=== PATIENT | male | born 1975 ===

== ENCOUNTER 2020-06-11 12:23 | Emergency (ER) | payer OTHER, SELFPAY ==
[2020-06-11 13:11] VITALS: BP 125/85; PULSE 90; RESP 16; TEMP 36.1; O2SAT 98; BMI 29.0
--- NOTE | 2020-06-11 13:34 | ED_ITS ---
HPI - General Adult General Chief complaint: General Medical <Maye Hurst NP - Last Filed: 06/11/20 16:17> Stated complaint: joint pain <Maye Hurst NP - Last Filed: 06/11/20 16:17> Time Seen by Provider: 06/11/20 13:29 <Maye Hurst NP - Last Filed: 06/11/20 16:17> Source: patient and hypnotherapist <Maye Husrt NP - Last Filed: 06/11/20 16:17> Mode of arrival: ambulatory <Maye Hurst NP - Last Filed: 06/11/20 16:17> Limitations: no limitations and language barrier <Maye Hurst NP - Last Filed: 06/11/20 16:17> History of Present Illness HPI narrative: 44-year-old male with a past medical history of rheumatoid arthritis here with complaints of joint pain and swelling for the last 3-4 days. Patient tells me he has difficulty with ambulation due to the pain. Using tramadol and warm compresses at home with no improvement. Patient was seen vocational case manager but due to the pandemic he has been unable to follow-up and therefore does not currently have a provider. He is not on any immunomodulators. Denies fevers, chills, chest pain, shortness of breath, cough, vomiting, diarrhea, abdominal pain, rash <Maye Hurst NP - Last Filed: 06/11/20 16:17> Related Data Home medications: Previous Rx's Medication Instructions Recorded oxycodone 5 mg PO Q6H PRN #10 tab 06/11/20 prednisone 40 mg PO DAILY #8 tab 06/11/20 <Maye Hurst NP - Last Filed: 06/11/20 16:17> Allergies/adverse reactions: Allergies Allergy/AdvReac Type Severity Reaction Status Date / Time aspirin [ASPIRIN] Allergy Unknown UNKNOWN Verified 06/11/20 13:16 ciprofloxacin [CIPROFLOXACIN] Allergy Unknown UNKNOWN Verified 06/11/20 13:16 <Maye Hurst NP - Last Filed: 06/11/20 16:17> Review of Systems Review of Systems: Yes all other systems are reviewed and are negative <Maye Hurst NP - Last Filed: 06/11/20 16:17> Constitutional: Constitutional: Reports no additional constitutional complaints, Denies body ache(s), Denies chills, Denies fever(s), Denies headache(s) and Denies weakness <Maye Hurst DATA WAREHOUSING MANAGER - Last Filed: 06/11/20 16:17> Eyes: Eyes: Reports no additional eye complaints and Denies change in vision <Maye Hurst DATA WAREHOUSING MANAGER - Last Filed: 06/11/20 16:17> ENT: Reports system reviewed and no additional complaints, except as docum ented, Denies dizziness, Denies headache(s), Denies nasal congestion, Denies nasal discharge and Denies neck pain <Maye Hurst DATA WAREHOUSING MANAGER - Last Filed: 06/11/20 16:17> Cardiovascular: Cardiovascular: Reports no additional cardiovascular complaints, Denies chest pain, Denies leg edema and Denies dyspnea <Maye Hurst DATA WAREHOUSING MANAGER - Last Filed: 06/11/20 16:17> Respiratory: Respiratory: Reports no additional respiratory complaints, Denies cough and Denies dyspnea <Maye Hurst DATA WAREHOUSING MANAGER - Last Filed: 06/11/20 16:17> Gastrointestinal: Gastrointestinal: Reports no additional gastrointestinal complaints, Denies abdominal pain, Denies diarrhea, Denies nausea and Denies vomiting <Maye Hurst DATA WAREHOUSING MANAGER - Last Filed: 06/11/20 16:17> Genitourinary: Genitourinary: Denies urinary incontinence <Maye Hurst DATA WAREHOUSING MANAGER - Last Filed: 06/11/20 16:17> Musculoskeletal: Musculoskeletal: Reports no additional musculoskeletal complaints, Denies back pain, Reports arthralgias, Reports joint swelling, Denies neck pain, Denies numbness and Denies tingling <Maye Hurst DATA WAREHOUSING MANAGER - Last Filed: 06/11/20 16:17> Integumentary/Breasts: Skin/Breast: Reports system reviewed and no additional complaints, except as docu and Denies rash <Maye Hurst DATA WAREHOUSING MANAGER - Last Filed: 06/11/20 16:17> Neurologic: Reports system reviewed and no additional complaints, except as documented, Denies Abnormal speech present, Denies dizziness, Denies headache(s), Denies numbness, Denies tingling and Denies weakness <Maye Hurst NP - Last Filed: 06/11/20 16:17> [facility] Past Medical History Attestation statement: The following information was validated with the patient. <Maye Hurst NP - Last Filed: 06/11/20 16:17> Source: old records reviewed and nursing notes reviewed <Maye Hurst NP - Last Filed: 06/11/20 16:17> Medical History: Medical History Hypertension Rheumatoid arthritis <Maye Hurst NP - Last Filed: 06/11/20 16:17> Surgical History: Surgical History Hx of cholecystectomy <Maye Hurst NP - Last Filed: 06/11/20 16:17> Social History Social History: Social History Alcohol intake: never Smoking Status: Current every day smoker Use of substances other than those prescribed or required for medical reasons: No Advance Directives: No Advance Directives Information Provided: Yes <Maye Hurst NP - Last Filed: 06/11/20 16:17> Physical Exam Vital Signs: Vital Signs: Last Vital Signs Temp 97.0 F 06/11/20 13:11 Pulse 90 06/11/20 13:11 Resp 16 06/11/20 13:11 BP 125/85 06/11/20 13:11 Pulse Ox 98 06/11/20 13:11 Body Mass Index 29.0 <Maye Hurst NP - Last Filed: 06/11/20 16:17> Vital Signs: Last Vital Signs Temp 97.0 F 06/11/20 13:11 Pulse 90 06/11/20 13:11 Resp 16 06/11/20 13:11 BP 125/85 06/11/20 13:11 Pulse Ox 98 06/11/20 13:11 Body Mass Index 29.0 <Hubert Nugent MD - Last Filed: 06/26/20 07:46> Const: General: cooperative, healthy appearing, comfortable and no acute distress <Maye Hurst NP - Last Filed: 06/11/20 16:17> Orientation/consciousness: patient oriented x3 <Maye Hurst NP - Last Filed: 06/11/20 16:17> Limitations: no limitations <Maye Hurst NP - Last Filed: 06/11/20 16:17> HENMT: Head: Yes normal to inspection <Maye Hurst NP - Last Filed: 06/11/20 16:17> Ears: hearing grossly normal bilaterally <Maye Hurst NP - Last Filed: 06/11/20 16:17> General nose exam: Normal external nose present <Maye Hurst NP - Last Filed: 06/11/20 16:17> Face and sinus: Yes normal facial exam <Maye Hurst NP - Last Filed: 06/11/20 16:17> Mouth: Normal oral and palatal mucosa present <Maye Hurst NP - Last Filed: 06/11/20 16:17> Throat: Yes posterior oropharynx normal <Maye Hurst NP - Last Filed: 06/11/20 16:17> Eyes: General: appearance normal, both eyes and all related structures <Maye Hurst NP - Last Filed: 06/11/20 16:17> Pupils: Equal, round and reactive pupils present <Maye Hurst NP - Last Filed: 06/11/20 16:17> Neck: Neck: Yes normal visual inspection <Maye Hurst NP - Last Filed: 06/11/20 16:17> Chest: Chest palpation & inspection: normal inspection of the chest <Maye Hurst NP - Last Filed: 06/11/20 16:17> Resp: Effort & Inspection: normal respiratory effort <Maye Hurst NP - Last Filed: 06/11/20 16:17> Auscultation: clear to auscultation bilaterally <Maye Hurst NP - Last Filed: 06/11/20 16:17> Cardio: Rate: regular rate <Maye Hurst NP - Last Filed: 06/11/20 16:17> Rhythm: regular rhythm <Maye Hurst NP - Last Filed: 06/11/20 16:17> Peripheral pulses: Peripheral pulses 2+ throughout <Maye Hurst DATA WAREHOUSING MANAGER - Last Filed: 06/11/20 16:17> GI: Inspection: Yes normal to inspection <Maye Hurst DATA WAREHOUSING MANAGER - Last Filed: 06/11/20 16:17> Palpation (GI): Soft to palpation and nontender <Maye Hurst NP - Last Filed: 06/11/20 16:17> Auscultation: normal bowel sounds <Maye Hurst NP - Last Filed: 06/11/20 16:17> Back/Spine/Pelvis: Thoracic/Lumbar Spine: thoracic and lumbar spine normal to inspection <Maye Hurst NP - Last Filed: 06/11/20 16:17> Skin: General skin exam: no rashes or lesions noted <Maye Hurst NP - Last Filed: 06/11/20 16:17> Neuro: General: patient oriented x3, no focal motor deficits and normal sensation to monofilament <Maye Hurst DATA WAREHOUSING MANAGER - Last Filed: 06/11/20 16:17> Cranial nerves: Yes Equal, round and reactive pupils present <Maye Hurst NP - Last Filed: 06/11/20 16:17> Cognition (Neuro): normal cognition <Maye Hurst DATA WAREHOUSING MANAGER - Last Filed: 06/11/20 16:17> Speech: No Abnormal speech present <Maye Hurst NP - Last Filed: 06/11/20 16:17> Gait exam (Neuro): Normal gait present <Maye Hurst NP - Last Filed: 06/11/20 16:17> Motor exam (neuro): 5/5 motor strength present throughout <Maye Hurst NP - Last Filed: 06/11/20 16:17> Extrem: Other: Swelling and tenderness to bilateral ankles, bilateral knees, bilateral wrists, bilateral shoulders. There is no appreciable erythema, warmth. Range of motion is limited in all joints due to pain <Maye Hurst NP - Last Filed: 06/11/20 16:17> General: Yes normal to inspection <Maye Hurst NP - Last Filed: 06/11/20 16:17> Course Course Course Narrative: [age] year old male with a past medical history of rheumatoid arthritis here with RA flare. Does not currently have her vocational case manager and is not on any immunomodulators. Using home tramadol and warm compresses with continued pain. Patient will likely benefit from a short burst of prednisone, will manage pain and refer to Rheumatology here. Reviewed worrisome signs and symptoms and when to return to the emergency department. Comfortable discharge home. <Maye Hurst NP - Last Filed: 06/11/20 16:17> I have reviewed the chart <Hubert Nugent MD - Last Filed: 06/26/20 07:46> Medical Decision Making Medical Records Medical records reviewed: Yes I reviewed the patient's medical records. <Maye Hurst NP - Last Filed: 06/11/20 16:17> Lab Data Lab results reviewed: Yes I reviewed the patient's lab results. <Maye Hurst NP - Last Filed: 06/11/20 16:17> Discharge Plan Discharge Clinical Impression: Rheumatoid arthritis flare <Maye Hurst NP - Last Filed: 06/11/20 16:17> Patient Disposition: Home, Self-Care <Maye Hurst NP - Last Filed: 06/11/20 16:17> Instructions: Rheumatoid Arthritis (ED) <Maye Hurst NP - Last Filed: 06/11/20 16:17> Additional Instructions: Warm compresses, do not mix tramadol with oxycodone <Maye Hurst NP - Last Filed: 06/11/20 16:17> Prescriptions: New oxycodone 5 mg tablet 5 mg PO Q6H PRN (Reason: pain) Qty: 10 RF: 0 prednisone 20 mg tablet 40 mg PO DAILY Qty: 8 RF: 0 <Maye Hurst NP - Last Filed: 06/11/20 16:17> Referrals: Levy Laboy MD [Physician] - 2 days <Maye Hurst NP - Last Filed: 06/11/20 16:17> Interventions: ED Discharge Assessment Last Done: 06/11/20 14:05 <Maye Hurst NP - Last Filed: 06/11/20 16:17> Discharge Date/Time: 06/11/20 14:06 <Maye Hurst NP - Last Filed: 06/11/20 16:17> Print Language: Syriac <Maye Hurst NP - Last Filed: 06/11/20 16:17>
[2020-06-11] MEDS: oxyCODONE HCl Immed Release 5 MG TABLET PO (13:51)
[2020-06-11] MEDS: predniSONE 20 MG TABLET 40 MG PO (13:52)
== END 2020-06-11 14:06 | disposition home or self-care (01) ==
PROVIDERS: Emergency Provider Emergency Medicine
DX: M06.862 Other specified rheumatoid arthritis, left knee (principal); M06.861 Other specified rheumatoid arthritis, right knee; F17.200 Nicotine dependence, unspecified, uncomplicated; Z71.6 Tobacco abuse counseling; Z79.899 Other long term (current) drug therapy
CPT/HCPCS: 99283; 99284

== ENCOUNTER 2020-07-12 08:56 | Emergency (ER) | payer OTHER, SELFPAY ==
--- NOTE | ~2020-07-12 | CT_ITS ---
EXAMINATION: CT ABDOMEN AND PELVIS WITHOUT CONTRAST CLINICAL INFORMATION: Change in urine habits with dark color urine. COMPARISON: CT abdomen and pelvis without contrast 07/15/2018 TECHNIQUE: Multidetector volumetric imaging was performed from the superior aspect of the liver through the pubic symphysis. Sagittal and coronal reformatted images were obtained on the technologist's workstation. This CT examination was performed using dose optimization techniques as appropriate, variously including the following: *Automated exposure control *Adjustment of mA and/or kV according to patient size (this includes techniques or standardized protocols for targeted exams where dose is matched to indication/reason for exam; i.e. extremities or head) *Use of iterative reconstruction technique DLP: 467 mGy-cm FINDINGS: LUNG BASES: The lung bases are clear. The heart size is normal. LIVER, GALLBLADDER, AND BILIARY TREE: The liver is normal in size, shape, and attenuation. No focal hepatic lesion or biliary ductal dilatation is present. The gallbladder has been surgically removed. PANCREAS: Unremarkable. SPLEEN: Unremarkable. ADRENAL GLANDS: Unremarkable. KIDNEYS AND URETERS: The kidneys are normal in size, shape, and attenuation. No hydronephrosis, hydroureter, or calculi seen. No perinephric stranding. BLADDER: The bladder is undistended with minimal anterior and posterior bladder wall thickening measuring 0.9 cm. GASTROINTESTINAL TRACT: There is scattered stool and gas seen throughout the colon without any significant distention. The small bowel loops are normal caliber. The stomach is nondistended and appears unremarkable. The appendix is normal caliber. ABDOMINAL WALL: There is a small supraumbilical midline hernia with intraperitoneal fat. The neck is 1.0 cm in width and craniocaudad length. A small umbilical hernia containing fat is also noted. LYMPH NODES: Normal. VASCULAR: Unremarkable. PELVIC VISCERA: There is no free air or free fluid seen. There is a solitary surgical staple in the pelvis. The prostate gland is normal size. OSSEOUS STRUCTURES: No lytic or sclerotic process seen. There is mild posterior spondylosis L5-S1 disc level. CT/CT abdomen pelvis wo con IMPRESSION: No acute intra-abdominal process seen. There is no the urolith or hydroureteronephrosis. Undistended bladder with mild bladder wall thickening. No radiopaque calculi seen in bladder. Mild supraumbilical midline abdominal hernia containing intraperitoneal fat.
[2020-07-12 09:41] VITALS: BP 115/66; PULSE 90; RESP 14; TEMP 37.6; O2SAT 98; BMI 23.2
[2020-07-12] MEDS: Ibuprofen 600 MG TABLET PO (10:34)
[2020-07-12] MEDS: oxyCODONE HCl Immed Release 5 MG TABLET PO (10:35)
[2020-07-12] MEDS: predniSONE 20 MG TABLET 60 MG PO (10:35)
[2020-07-12 10:48] LABS: Glucose Urine UA NEG (NEG); Leukocyte Esterase Urine NEG (NEG); Nitrite Urine NEG (NEG); PH 7.5 (5.0-8.0); Specific Gravity - Urine 1.025 (1.005-1.025); Urine Blood NEG (NEG); Urine Ketones 15 MG/DL (NEG); Urine Protein 1+ MG/DL (NEG-TRACE)
[2020-07-12 10:50] LABS: Appearance Urine CLEAR; Color Urine AMBER
[2020-07-12 11:01] LABS: Amorphous Sediment Urine TRACE /LPF; Mucus Urine 3+ /LPF; RBC Urine 0-2 /HPF (0); Sperm Urine NOTED; WBC Urine 0 /HPF (0-4)
--- NOTE | 2020-07-12 11:23 | ED.MALEGU ---
HPI - Male Genitourinary General Chief complaint: Fever Stated complaint: BODY ACHES Time Seen by Provider: 07/12/20 09:07 Source: patient Mode of arrival: ambulatory Limitations: no limitations History of Present Illness HPI Narrative: 44-year-old male with a past medical history of hypertension, hyperlipidemia and rheumatoid arthritis presenting to the ED with complaints of darker colored urine over the past 3 days then he noticed 2 days ago he started having body aches and chills. He reports he has not been sexually active in years and he does not believe he has an STD. He reports he does not actually take his temperature although had chills with sweats and believes he had a fever. He denies any penile discharge or hematuria. He also reports a separate complaint of a flare-up of his rheumatoid arthritis in his bilateral jaw/bilateral hands/bilateral knees and bilateral ankles. He reports he takes tramadol for his rheumatoid arthritis although not providing any symptomatic relief. He reports he has a follow-up with his rheumatoid arthritis coming up. Denies any measured fevers, dizziness, headache, neck pain/stiffness, chest pain, shortness of breath, palpitations, dyspnea on exertion, orthopnea, cough, sore throat, nausea/vomiting/diarrhea/constipation, abdominal pain, back pain or any other symptoms complaints or concerns at this time. Patient denies any new medications, recent trauma, recent travel or sick contacts that he is aware of. MD Complaint: other (Dark colored urine) Onset (ago): day(s) (3 days) Duration: constant and progressively worsening Location: penis Severity: moderate Relieving factors: none Exacerbating factors: urination Related Data Sexually active: No Previous Rx's Medication Instructions Recorded oxycodone 5 mg PO Q6H PRN #10 tab 06/11/20 prednisone 40 mg PO DAILY #8 tab 06/11/20 diazepam [Valium] 10 mg PO TID PRN #10 tab 07/12/20 ibuprofen 800 mg PO Q8H PRN #14 tab 07/12/20 oxycodone 5 mg PO BID PRN #10 tab 07/12/20 prednisone 40 mg PO DAILY 5 Days #10 tab 07/12/20 Allergies Allergy/AdvReac Type Severity Reaction Status Date / Time aspirin [ASPIRIN] Allergy Unknown UNKNOWN Verified 06/11/20 13:16 ciprofloxacin [CIPROFLOXACIN] Allergy Unknown UNKNOWN Verified 06/11/20 13:16 Review of Systems Review of Systems: Constitutional : Positive chills/malaise/fatigue, No Weight loss, No measured Fever, No Night Sweats ENT/Mouth: No ear pain, No sore throat, No Difficulty swallowing Cardiovascular : No Chest Pain, No SOB, No Dyspnea on Exertion, No Orthopnea, NoEdema, No Palpitations Respiratory : No Cough, No Sputum, No Wheezing, No Dyspnea Gastrointestinal : No Nausea, No Vomiting, No abdominal pain, No Diarrhea, No blood streaked emesis, No coffee-ground emesis, No gross hematemesis, No blood streak stool, No gross hematochezia, No Melena Genitourinary : Positive change in urine color, No irregular bleeding, No Dysuria, No Urinary Frequency, No Hematuria, No Urinary Incontinence, No Urgency, No Flank Pain Musculoskeletal : Positive joint pain/swelling/myalgias Skin : No Skin Lesions, No rash Neuro : No Weakness, No Numbness, No Paresthesias, No Loss of Consciousness, NoDizziness, No Headache Psych : No Social Issues, Heme/Lymph: No Bruising, No Bleeding,No Lymphadenopathy Endocrine : No Polyuria, No Polydipsia, No Temperature Intolerance Yes all other systems are reviewed and are negative [facility] Past Medical History Attestation statement: The following information was validated with the patient. Medical History Hypertension Rheumatoid arthritis Surgical History Hx of cholecystectomy Social History Social History Alcohol intake: never Smoking Status: Current every day smoker Smoked in Last 30 Days: No Use of substances other than those prescribed or required for medical reasons: No Advance Directives: No Advance Directives Information Provided: No Physical Exam Vital Signs: Vital Signs: Last Vital Signs Temp 98.2 F 07/12/20 14:00 Pulse 73 07/12/20 14:00 Resp 16 07/12/20 14:00 BP 104/60 07/12/20 14:00 Pulse Ox 99 07/12/20 14:00 Body Mass Index 23.2 vital signs have been reviewed as normal and appeared to be correct. Blood pressure normal. Heart rate normal. Respiration rate normal. Temperature normal. Oxygen saturation normal. Appearance: Alert. Oriented X3. No acute distress. Head: Normal external exam. Normocephalic. Eyes: PERRLA. EOMI. Conjunctiva and sclera normal. Eyelids normal. ENT: Pharynx normal. Uvula midline. Moist mucous membranes. Neck: Normal inspection. Neck supple. FROM. No adenopathy. No meningeal signs. CVS: Normal heart rate and rhythm. Heart sound normal. No murmurs noted. Pulses normal throughout. Respiratory: No respiratory distress. Painless inspiration. Breath sounds normal. No wheezes/rales/rhonchi noted. Chest nontender. No accessory muscle usage noted or decreased air movement noted. Abdomen: Soft and nontender. Nondistended. No guarding. No rigidity. Bowel sounds normal in all 4 quadrants. No distention noted. No organomegaly noted. No visible injury noted. No rebound tenderness. Negative Rovsing sign. Negative obturator's sign. Negative psoas sign. Negative Russell sign. Back: No CVA tenderness. Full range of motion noted. Skin: Skin warm and dry. Normal skin color. Normal skin turgor. No rashes/lesions/lacerations noted. Extremities: Patient with tenderness to palpation to bilateral hands at the MCPs with soft tissue swelling noted consistent with acute flare of rheumatoid arthritis. No signs of infection noted/erythema/streaking/fluctuance or induration. Patient mild tenderness to palpation to bilateral knees no laxity is noted patient has full range of motion. No joint effusion is noted. Patient with mild tenderness to palpation to bilateral ankles with mild soft tissue swelling no signs of infection. Full range of motion of bilateral ankles and no laxity is noted. Patient has a normal steady gait. Otherwise all other Extremities exhibit normal range of motion and nontender. Neuro: Oriented X 3. No motor deficit. No sensory deficit. Reflexes normal. Normal steady gait. Course Course Course Narrative: 15:20pm - labs returned and CT scan at this time due to they were delayed and patient's labs reviewed at this time and patient has an elevation in ALT at 67 and alkaline phosphate at 318 and total protein 8.1 otherwise all other labs are within normal limits. UA revealed +1 protein and [place] color urine with 15 ketones otherwise no evidence of UTI. Patient with diarrhea for COVID/RSV/flu. - due to the patient's elevated ALT and alkaline phosphate I added hepatitis A/hepatitis-B and hepatitis-C panel although will not return today. 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 Patient understands agrees with this plan. MDM - Male Genitourinary MDM Narrative Medical decision making narrative: 11am - 44-year-old male presenting to the ED with complaints of dark colored urine over the past 3 days with associated body aches and chills. Not sexually active. No thoughts of STD. Separate complaint of acute on chronic rheumatoid arthritis flare up over the past few days as well. Currently on tramadol not providing any symptomatic relief. Follow-up appointment this month to his rheumatoid arthritis. Plan: Labs, UA, gonorrhea/chlamydia urine, COVID/RSV/flu swab, CT scan of abd/pelvis without IV contrast. Provide 60 mg of prednisone, 600 mg of ibuprofen and 5 mg of oxycodone for the patient's rheumatoid arthritis flare-up. Then re-evaluate Medical Records Attestation: I reviewed the patient's medical records. Lab Data Attestation: I reviewed the patient's lab results. Result diagrams: 07/12/20 13:00 07/12/20 13:00 Labs: Lab Results 07/12/20 07/12/20 07/12/20 Range/Units 10:22 10:40 13:00 WBC 6.3 (4.8-10.8) X10*3/uL RBC 4.73 (4.60-5.80) X10*6/uL Hgb 14.3 (14.0-18.0) g/dl Hct 42.6 (42-52) % MCV 90.1 (80-98) fL MCH 30.2 (27.0-33.0) pg MCHC 33.6 (31.0-36.0) g/dl RDW 11.2 (11.0-16.0) % Plt Count 375 (160-400) X10*3/uL MPV 8.9 L (9.4-12.4) fL Immature Gran % (Auto) 0.3 (0.0-0.4) % Neut % (Auto) 85.2 H (45-73) % Lymph % (Auto) 10.9 L (20-40) % Barron % (Auto) 2.7 (2-11) % Eos % (Auto) 0.6 (0-4) % Baso % (Auto) 0.3 (0-2) % Lymph # (Auto) 0.7 L (1.2-4.9) X10*3/uL Barron # (Auto) 0.2 (0.1-1.2) X10*3/uL Eos # (Auto) 0.0 (0.0-0.4) X10*3/uL Baso # (Auto) 0.0 (0.0-0.2) X10*3/uL Abs Immat Gran (auto) 0.02 (0.00-0.03) X10*3/uL Absolute Neuts (auto) 5.3 (2.0-8.3) X10*3/uL Absolute Nucleated RBC 0.000 (0.0-0.012) X10*3/uL Nucleated RBC % (auto) 0.0 (0.0-0.2) /100WBC Smear Tech's Comments VERIFIED Hold Blue Top Sodium (135-145) mmol/L Potassium (3.3-5.1) mmol/L Chloride (96-108) mmol/L Carbon Dioxide (22-29) mmol/L Anion Gap (12-20) BUN (9-16) mg/dL Creatinine (0.5-1.4) mg/dL Estim Creat Clear Calc Estimated GFR Random Glucose (60-115) mg/dL Calcium (8.4-10.2) mg/dL Total Bilirubin (0.0-1.0) mg/dL AST (5-37) U/L ALT (0-40) U/L Alkaline Phosphatase (39-117) U/L Total Protein (6.5-8.0) g/dL Albumin (3.5-5.0) g/dL Urine Color [place] Urine Appearance CLEAR Urine pH 7.5 (5.0-8.0) Ur Specific [place] 1.025 (1.005-1.025) Urine Protein 1+ H (NEG-TRACE) MG/DL Urine Glucose (UA) NEG (NEG) MG/DL Urine Ketones 15 (NEG) MG/DL Urine Blood NEG (NEG) Urine Nitrite NEG (NEG) Ur Leukocyte Esterase NEG (NEG) Urine RBC 0-2 (0) /HPF Urine WBC 0 (0-4) /HPF Ur Squamous Epith Cells NONE /LPF Amorphous Sediment TRACE /LPF Urine Bacteria NONE /LPF Urine Mucus 3+ /LPF Urine Sperm NOTED Coronavirus (PCR) NEGATIVE (Negative) Influenza Type A (PCR) NEGATIVE (Negative) Influenza Type B (PCR) NEGATIVE (Negative) RSV RNA Qual (PCR) NEGATIVE (Negative) 07/12/20 07/12/20 Range/Units 13:00 13:00 WBC (4.8-10.8) X10*3/uL RBC (4.60-5.80) X10*6/uL Hgb (14.0-18.0) g/dl Hct (42-52) % MCV (80-98) fL MCH (27.0-33.0) pg MCHC (31.0-36.0) g/dl RDW (11.0-16.0) % Plt Count (160-400) X10*3/uL MPV (9.4-12.4) fL Immature Gran % (Auto) (0.0-0.4) % Neut % (Auto) (45-73) % Lymph % (Auto) (20-40) % Barron % (Auto) (2-11) % Eos % (Auto) (0-4) % Baso % (Auto) (0-2) % Lymph # (Auto) (1.2-4.9) X10*3/uL Barron # (Auto) (0.1-1.2) X10*3/uL Eos # (Auto) (0.0-0.4) X10*3/uL Baso # (Auto) (0.0-0.2) X10*3/uL Abs Immat Gran (auto) (0.00-0.03) X10*3/uL Absolute Neuts (auto) (2.0-8.3) X10*3/uL Absolute Nucleated RBC (0.0-0.012) X10*3/uL Nucleated RBC % (auto) (0.0-0.2) /100WBC Smear Tech's Comments Hold Blue Top SEE NOTE Sodium 139 (135-145) mmol/L Potassium 4.8 (3.3-5.1) mmol/L Chloride 102 (96-108) mmol/L Carbon Dioxide 28 (22-29) mmol/L Anion Gap 14 (12-20) BUN 8 L (9-16) mg/dL Creatinine 0.72 (0.5-1.4) mg/dL Estim Creat Clear Calc 118.1 Estimated GFR > 60 Random Glucose 107 (60-115) mg/dL Calcium 9.7 (8.4-10.2) mg/dL Total Bilirubin 0.6 (0.0-1.0) mg/dL AST 32 (5-37) U/L ALT 67 H (0-40) U/L Alkaline Phosphatase 318 H (39-117) U/L Total Protein 8.1 H (6.5-8.0) g/dL Albumin 3.9 (3.5-5.0) g/dL Urine Color Urine Appearance Urine pH (5.0-8.0) Ur Specific [place] (1.005-1.025) Urine Protein (NEG-TRACE) MG/DL Urine Glucose (UA) (NEG) MG/DL Urine Ketones (NEG) MG/DL Urine Blood (NEG) Urine Nitrite (NEG) Ur Leukocyte Esterase (NEG) Urine RBC (0) /HPF Urine WBC (0-4) /HPF Ur Squamous Epith Cells /LPF Amorphous Sediment /LPF Urine Bacteria /LPF Urine Mucus /LPF Urine Sperm Coronavirus (PCR) (Negative) Influenza Type A (PCR) (Negative) Influenza Type B (PCR) (Negative) RSV RNA Qual (PCR) (Negative) Imaging Data CT scan of abdomen and pelvis without contrast: Attestation: I personally reviewed and interpreted this imaging study as follows: Radiologist's impression: FINDINGS: LUNG BASES: The lung bases are clear. The heart size is normal. LIVER, GALLBLADDER, AND BILIARY TREE: The liver is normal in size, shape, and attenuation. No focal hepatic lesion or biliary ductal dilatation is present. The gallbladder has been surgically removed. PANCREAS: Unremarkable. SPLEEN: Unremarkable. ADRENAL GLANDS: Unremarkable. KIDNEYS AND URETERS: The kidneys are normal in size, shape, and attenuation. No hydronephrosis, hydroureter, or calculi seen. No perinephric stranding. BLADDER: The bladder is undistended with minimal anterior and posterior bladder wall thickening measuring 0.9 cm. GASTROINTESTINAL TRACT: There is scattered stool and gas seen throughout the colon without any significant distention. The small bowel loops are normal caliber. The stomach is nondistended and appears unremarkable. The appendix is normal caliber. ABDOMINAL WALL: There is a small supraumbilical midline hernia with intraperitoneal fat. The neck is 1.0 cm in width and craniocaudad length. A small umbilical hernia containing fat is also noted. LYMPH NODES: Normal. VASCULAR: Unremarkable. PELVIC VISCERA: There is no free air or free fluid seen. There is a solitary surgical staple in the pelvis. The prostate gland is normal size. OSSEOUS STRUCTURES: No lytic or sclerotic process seen. There is mild posterior spondylosis L5-S1 disc level. CT/CT abdomen pelvis wo con IMPRESSION: No acute intra-abdominal process seen. There is no the urolith or hydroureteronephrosis. Undistended bladder with mild bladder wall thickening. No radiopaque calculi seen in bladder. Mild supraumbilical midline abdominal hernia containing intraperitoneal fat. Discharge Plan Discharge Clinical Impression: Rheumatoid arthritis, Urine discoloration, Alkaline phosphatase elevation, Abdominal hernia Patient Disposition: Home, Self-Care Instructions: Rheumatoid Arthritis (ED), Abdominal Pain (ED) Additional Instructions: You have pending lab results and any are positive you will be contacted. Prescriptions: New ibuprofen 800 mg tablet 800 mg PO Q8H PRN (Reason: pain) Qty: 14 RF: 0 prednisone 20 mg tablet 40 mg PO DAILY 5 Days Qty: 10 RF: 0 diazepam [Valium] 10 mg tablet 10 mg PO TID PRN (Reason: muscle spasm) Qty: 10 RF: 0 oxycodone 5 mg tablet 5 mg PO BID PRN (Reason: pain) Qty: 10 RF: 0 No Action oxycodone 5 mg tablet 5 mg PO Q6H PRN (Reason: pain) Qty: 10 RF: 0 prednisone 20 mg tablet 40 mg PO DAILY Qty: 8 RF: 0 Referrals: Daniel Khan MD [Physician] - 2 days (Regarding your [place] colored urine) Physician,Caitlin [Primary Care Provider] - 2 days (You should follow-up with her PCP regarding her liver function and 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
[2020-07-12 11:43] LABS: Influenza A PCR NEGATIVE (Negative); Influenza B PCR NEGATIVE (Negative); Resp Syncy Virus RNA Qual PCR NEGATIVE (Negative); SARS COV2 PCR INHOUSE NEGATIVE (Negative)
[2020-07-12 13:08] LABS: Basophils Percent Auto 0.3 % (0-2); Eosinophils Percent Auto 0.6 % (0-4); Hematocrit 42.6 % (42-52); Hemoglobin 14.3 g/dl (14.0-18.0); Imm Gran Abs Auto 0.02 X10*3/uL (0.00-0.03); Imm Gran Pct Auto 0.3 % (0.0-0.4); Lymphocytes Absolute Auto 0.7 X10*3/uL (1.2-4.9); Lymphocytes Percent Auto 10.9 % (20-40); MANUAL DIFF FLAG SCAN; Mean Corpuscular HGB Conc 33.6 g/dl (31.0-36.0); Mean Corpuscular Hemoglobin 30.2 pg (27.0-33.0); Mean Corpuscular Volume 90.1 fL (80-98); Mean Platelet Volume 8.9 fL (9.4-12.4); Monocytes Absolute Auto 0.2 X10*3/uL (0.1-1.2); Monocytes Percent Auto 2.7 % (2-11); Neutrophils Absolute Auto 5.3 X10*3/uL (2.0-8.3); Neutrophils Percent Auto 85.2 % (45-73); Platelet Count 375 X10*3/uL (160-400); Red Blood Count 4.73 X10*6/uL (4.60-5.80); Red Cell Distribution Width 11.2 % (11.0-16.0); SCAN SMEAR FLAG 1; White Blood Count 6.3 X10*3/uL (4.8-10.8)
[2020-07-12 13:42] LABS: Alanine Aminotransferase 67 U/L (0-40); Albumin Level 3.9 g/dL (3.5-5.0); Alkaline Phosphatase 318 U/L (39-117); Anion Gap 14 (12-20); Aspartate Amino Transferase 32 U/L (5-37); Bilirubin Total 0.6 mg/dL (0.0-1.0); Blood Urea Nitrogen 8 mg/dL (9-16); Calcium 9.7 mg/dL (8.4-10.2); Carbon Dioxide 28 mmol/L (22-29); Chloride 102 mmol/L (96-108); Creatinine Clr Calc Pharmacy 118.1; Estimated Glomerular Filt Rate > 60; Glucose Random 107 mg/dL (60-115); Potassium 4.8 mmol/L (3.3-5.1); Sodium 139 mmol/L (135-145); Total Protein 8.1 g/dL (6.5-8.0)
[2020-07-12 13:47] LABS: SLIDE REVIEW VERIFIED
[2020-07-12 14:00] VITALS: BP 104/60; PULSE 73; RESP 16; TEMP 36.8; O2SAT 99
--- NOTE | 2020-07-12 14:50 | PC.NURSE ---
pt has been waiting patiently in [facility], [facility]. labs were delayed d/t high volume in ed. pt c/o subjective fevers and gen pain. awaits last results. no resp distreess. skin pwd. nad.
[2020-07-13 04:32] LABS: HBS Num1 > 1000.00 mIU/mL (0-7.99); Hepatitis B Core Antibody Nonreactive (Nonreactive); Hepatitis B Surface Antigen Negative (Negative); ~Hepatitis B Surface Antibody REACTIVE (Nonreactive)
[2020-07-13 04:42] LABS: Hepatitis A Antibody IgM 0.36 Index (0-0.79); ~HepC Num1 0.12 S/CO (0.00-0.79); ~Hepatitis A Antibody IgM Nonreactive (Nonreactive); ~Hepatitis C Antibody Nonreactive (Nonreactive)
== END 2020-07-12 16:30 | disposition home or self-care (01) ==
PROVIDERS: Physician Assistant Medical; Emergency Provider Emergency Medicine
DX: M06.9 Rheumatoid arthritis, unspecified (principal); M79.10 Myalgia, unspecified site; K46.9 Unspecified abdominal hernia without obstruction or gangrene; I10 Essential (primary) hypertension; E78.5 Hyperlipidemia, unspecified; F17.200 Nicotine dependence, unspecified, uncomplicated; Z20.822 Contact with and (suspected) exposure to COVID-19; Z71.6 Tobacco abuse counseling; Z79.899 Other long term (current) drug therapy
CPT/HCPCS: 0241U; 36415; 74176; 80053; 81001; 85025; 86704; 86706; 86709; 86803; 87340; 99284

== ENCOUNTER → 2020-09-28 09:19 | Outpatient (BNVA) | payer OTHER, SELFPAY | PROVIDERS: PCP Nurse Practitioner; Visit Provider Student in an Organized Health Care Education/Training Program | DX: M06.9 Rheumatoid arthritis, unspecified (principal) | CPT/HCPCS: 99212 ==

== ENCOUNTER 2020-10-01 09:53 | Outpatient (REF) | payer OTHER, SELFPAY ==
--- NOTE | ~2020-10-01 | XR_ITS ---
EXAMINATION: BILATERAL HAND X-RAY CLINICAL INFORMATION: Rheumatoid arthritis COMPARISON: Previous exam December 2015 TECHNIQUE: 3 views of each hand FINDINGS: Left: Bone alignment is normal. No fracture or dislocation is seen. There may be small erosive changes of the ulnar side second, third, and fourth proximal phalanges at the MCP joints. Joint spaces are otherwise normal. Soft tissues are normal. Right: Bone alignment is normal. No fracture or dislocation is seen. There are erosive changes of the radial side of the second and third metacarpal head at the MCP joints. There is a cyst or erosive change of the ulnar styloid. Soft tissues are normal. XR/XR hand RT min 3V IMPRESSION: Arthritis at the bilateral MCP joints and erosive change or cyst of the right ulnar styloid. These findings are new or increased from December 2015.
--- NOTE | ~2020-10-01 | XR_ITS ---
EXAMINATION: BILATERAL HAND X-RAY CLINICAL INFORMATION: Rheumatoid arthritis COMPARISON: Previous exam December 2015 TECHNIQUE: 3 views of each hand FINDINGS: Left: Bone alignment is normal. No fracture or dislocation is seen. There may be small erosive changes of the ulnar side second, third, and fourth proximal phalanges at the MCP joints. Joint spaces are otherwise normal. Soft tissues are normal. Right: Bone alignment is normal. No fracture or dislocation is seen. There are erosive changes of the radial side of the second and third metacarpal head at the MCP joints. There is a cyst or erosive change of the ulnar styloid. Soft tissues are normal. XR/XR hand LT min 3V IMPRESSION: Arthritis at the bilateral MCP joints and erosive change or cyst of the right ulnar styloid. These findings are new or increased from December 2015.
--- NOTE | ~2020-10-01 | XR_ITS ---
EXAMINATION: XR CHEST CLINICAL INFORMATION: Rheumatoid arthritis COMPARISON: Previous chest x-ray most recent August 2018 TECHNIQUE: 2 views of the chest were obtained. FINDINGS: The cardiac and mediastinal contours are normal. The lungs are clear. There is no pleural effusion or pneumonia thorax. There are mild degenerative changes of the thoracic spine and curvature to the right. XR/XR chest 2V IMPRESSION: No evidence for acute disease in the chest
[2020-10-01 10:31] LABS: MANUAL DIFF FLAG NO
[2020-10-01 10:36] LABS: Basophils Percent Auto 0.3 % (0-2); Eosinophils Percent Auto 0.5 % (0-4); Hematocrit 39.9 % (42-52); Hemoglobin 13.6 g/dl (14.0-18.0); Imm Gran Abs Auto 0.04 X10*3/uL (0.00-0.03); Imm Gran Pct Auto 0.5 % (0.0-0.4); Lymphocytes Absolute Auto 1.5 X10*3/uL (1.2-4.9); Lymphocytes Percent Auto 19.4 % (20-40); Mean Corpuscular HGB Conc 34.1 g/dl (31.0-36.0); Mean Corpuscular Hemoglobin 30.5 pg (27.0-33.0); Mean Corpuscular Volume 89.5 fL (80-98); Mean Platelet Volume 9.6 fL (9.4-12.4); Monocytes Absolute Auto 0.4 X10*3/uL (0.1-1.2); Monocytes Percent Auto 5.5 % (2-11); Neutrophils Absolute Auto 5.8 X10*3/uL (2.0-8.3); Neutrophils Percent Auto 73.8 % (45-73); Platelet Count 300 X10*3/uL (160-400); Red Blood Count 4.46 X10*6/uL (4.60-5.80); Red Cell Distribution Width 12.2 % (11.0-16.0); White Blood Count 7.8 X10*3/uL (4.8-10.8)
[2020-10-01 11:18] LABS: Alanine Aminotransferase 25 U/L (0-40); Albumin Level 3.8 g/dL (3.5-5.0); Alkaline Phosphatase 115 U/L (39-117); Anion Gap 11 (12-20); Aspartate Amino Transferase 13 U/L (5-37); Bilirubin Total 0.3 mg/dL (0.0-1.0); Blood Urea Nitrogen 6 mg/dL (9-16); C Reactive Protein 3.51 mg/dL (< or = 0.50); Calcium 9.4 mg/dL (8.4-10.2); Carbon Dioxide 29 mmol/L (22-29); Chloride 105 mmol/L (96-108); Estimated Glomerular Filt Rate > 60; Glucose Random 112 mg/dL (60-115); Potassium 3.9 mmol/L (3.3-5.1); Sodium 141 mmol/L (135-145); Total Protein 7.3 g/dL (6.5-8.0)
[2020-10-01 11:26] LABS: Rheumatoid Factor 196.1 IU/mL (<15.0)
[2020-10-01 11:41] LABS: Erythrocyte Sedimentation Rate 34 MM/HR (0-15)
[2020-10-03 15:47] LABS: Cyclic Citrullinated Peptide >250 UNITS
[2020-10-03 20:32] LABS: TS Negative Control Passed; TS Panel A 0; TS Panel B 0; TS Positive Control Passed; TSpotTB Negative (SeeBelow)
== END 2020-10-01 09:54 | disposition home or self-care (01) ==
LOC: HO.XRAY 09:53
PROVIDERS: Visit Provider Student in an Organized Health Care Education/Training Program
DX: Z11.1 Encounter for screening for respiratory tuberculosis (principal); M06.9 Rheumatoid arthritis, unspecified
CPT/HCPCS: 36415; 71046; 73130; 80053; 85025; 85652; 86140; 86200; 86431; 86481

== ENCOUNTER → 2020-10-10 13:51 | Outpatient (BNVA) | payer OTHER, SELFPAY | PROVIDERS: PCP Nurse Practitioner; Visit Provider Student in an Organized Health Care Education/Training Program | DX: M06.9 Rheumatoid arthritis, unspecified (principal) | CPT/HCPCS: 99212 ==

== ENCOUNTER → 2020-12-13 12:39 | Outpatient (BNVA) | payer OTHER, SELFPAY | PROVIDERS: PCP Nurse Practitioner; Visit Provider Nurse Practitioner Family ==

== ENCOUNTER → 2021-02-14 12:16 | Outpatient (BNVA) | payer OTHER, SELFPAY | PROVIDERS: PCP Nurse Practitioner; Visit Provider Nurse Practitioner Family | DX: M06.9 Rheumatoid arthritis, unspecified (principal) | CPT/HCPCS: 99212 ==

== ENCOUNTER 2021-02-19 13:14 | Outpatient (REF) | payer OTHER, SELFPAY ==
[2021-02-19 13:34] LABS: MANUAL DIFF FLAG NO
[2021-02-19 13:50] LABS: Basophils Percent Auto 0.5 % (0-2); Eosinophils Absolute Auto 0.1 X10*3/uL (0.0-0.4); Eosinophils Percent Auto 1.1 % (0-4); Hematocrit 39.5 % (42.0-52.0); Hemoglobin 13.9 g/dl (14.0-18.0); Imm Gran Abs Auto 0.05 X10*3/uL (0.00-0.03); Imm Gran Pct Auto 0.6 % (0.0-0.4); Lymphocytes Percent Auto 36.6 % (20-40); Mean Corpuscular HGB Conc 35.2 g/dl (31.0-36.0); Mean Corpuscular Hemoglobin 31.8 pg (27.0-33.0); Mean Corpuscular Volume 90.4 fL (80.0-98.0); Mean Platelet Volume 9.2 fL (9.4-12.4); Monocytes Absolute Auto 0.5 X10*3/uL (0.1-1.2); Monocytes Percent Auto 6.4 % (2-11); Neutrophils Absolute Auto 4.6 x10*3/uL (2.0-8.3); Neutrophils Percent Auto 54.8 % (45-73); Platelet Count 336 X10*3/uL (160-400); Red Blood Count 4.37 X10*6/uL (4.60-5.80); Red Cell Distribution Width 11.4 % (11.0-16.0); White Blood Count 8.3 X10*3/uL (4.8-10.8)
[2021-02-19 14:18] LABS: Alanine Aminotransferase 29 U/L (0-40); Albumin Level 3.7 g/dL (3.5-5.0); Alkaline Phosphatase 102 U/L (39-117); Anion Gap 11 (12-20); Aspartate Amino Transferase 20 U/L (5-37); Bilirubin Total 0.4 mg/dL (0.0-1.0); Blood Urea Nitrogen 7 mg/dL (9-16); C Reactive Protein 1.37 mg/dL (< or = 0.50); Calcium 9.5 mg/dL (8.4-10.2); Carbon Dioxide 28 mmol/L (22-29); Chloride 105 mmol/L (96-108); Estimated Glomerular Filt Rate > 60; Glucose Random 88 mg/dL (60-115); Potassium 3.4 mmol/L (3.3-5.1); Sodium 141 mmol/L (135-145); Total Protein 7.5 g/dL (6.5-8.0)
[2021-02-19 15:16] LABS: Erythrocyte Sedimentation Rate 38 MM/HR (0-15)
== END 2021-02-19 13:15 | disposition home or self-care (01) ==
LOC: HO.LAB 13:14
PROVIDERS: Nurse Practitioner Family; Visit Provider Student in an Organized Health Care Education/Training Program
DX: M06.9 Rheumatoid arthritis, unspecified (principal)
CPT/HCPCS: 36415; 80053; 85025; 85652; 86140

== ENCOUNTER 2021-05-06 08:06 | Outpatient (REF) | payer OTHER, SELFPAY ==
--- NOTE | ~2021-05-06 | XR_ITS ---
EXAMINATION: XR KNEE, BILATERAL STANDING XR KNEE, LEFT CLINICAL INFORMATION: Pain in knee. COMPARISON: None TECHNIQUE: AP bilateral knee standing and left knee 2 views. FINDINGS: AP BILATERAL KNEE: There is mild reduction in the medial and lateral compartments of both knees without bony erosive changes. No soft tissue swelling seen. LEFT KNEE: The patellofemoral compartment joint space is preserved. There is mild suprapatellar joint effusion. No bony erosive changes or loose body seen. XR/XR knee standing BI IMPRESSION: Mild suprapatellar joint effusion left knee. There is no fracture or dislocation in left knee. Mild reduction in the medial and lateral compartments of both knees on standing upright view, likely early degenerative changes.
--- NOTE | ~2021-05-06 | XR_ITS ---
EXAMINATION: XR KNEE, BILATERAL STANDING XR KNEE, LEFT CLINICAL INFORMATION: Pain in knee. COMPARISON: None TECHNIQUE: AP bilateral knee standing and left knee 2 views. FINDINGS: AP BILATERAL KNEE: There is mild reduction in the medial and lateral compartments of both knees without bony erosive changes. No soft tissue swelling seen. LEFT KNEE: The patellofemoral compartment joint space is preserved. There is mild suprapatellar joint effusion. No bony erosive changes or loose body seen. XR/XR knee LT 2V IMPRESSION: Mild suprapatellar joint effusion left knee. There is no fracture or dislocation in left knee. Mild reduction in the medial and lateral compartments of both knees on standing upright view, likely early degenerative changes.
== END 2021-05-06 08:07 | disposition home or self-care (01) ==
LOC: HO.HOSX 08:06
PROVIDERS: Visit Provider Physician Assistant
DX: M06.9 Rheumatoid arthritis, unspecified (principal); M25.562 Pain in left knee; Z88.6 Allergy status to analgesic agent; Z88.1 Allergy status to other antibiotic agents; I10 Essential (primary) hypertension
CPT/HCPCS: 20610; 73560; 73565; 87071; 87073; 87205; 89060; 99202; J1040

== ENCOUNTER → 2021-06-13 12:10 | Outpatient (BNVA) | payer OTHER, SELFPAY | PROVIDERS: PCP Nurse Practitioner; Visit Provider Nurse Practitioner Family | DX: M06.9 Rheumatoid arthritis, unspecified (principal) | CPT/HCPCS: 99212 ==

== ENCOUNTER 2021-06-17 10:28 | Outpatient (REF) | payer OTHER, SELFPAY ==
[2021-06-17 10:45] LABS: MANUAL DIFF FLAG NO
[2021-06-17 11:06] LABS: Basophils Absolute Auto 0.1 X10*3/uL (0.0-0.2); Basophils Percent Auto 0.5 % (0-2); Eosinophils Absolute Auto 0.2 X10*3/uL (0.0-0.4); Eosinophils Percent Auto 1.7 % (0-4); Hematocrit 40.7 % (42.0-52.0); Hemoglobin 13.8 g/dl (14.0-18.0); Imm Gran Abs Auto 0.05 X10*3/uL (0.00-0.03); Imm Gran Pct Auto 0.5 % (0.0-0.4); Lymphocytes Absolute Auto 4.1 X10*3/uL (1.2-4.9); Lymphocytes Percent Auto 37.9 % (20-40); Mean Corpuscular HGB Conc 33.9 g/dl (31.0-36.0); Mean Corpuscular Hemoglobin 31.2 pg (27.0-33.0); Mean Corpuscular Volume 91.9 fL (80.0-98.0); Mean Platelet Volume 9.3 fL (9.4-12.4); Monocytes Absolute Auto 0.8 X10*3/uL (0.1-1.2); Monocytes Percent Auto 7.1 % (2-11); Neutrophils Absolute Auto 5.7 x10*3/uL (2.0-8.3); Neutrophils Percent Auto 52.3 % (45-73); Platelet Count 314 X10*3/uL (160-400); Red Blood Count 4.43 X10*6/uL (4.60-5.80); White Blood Count 10.9 X10*3/uL (4.8-10.8)
[2021-06-17 11:57] LABS: Erythrocyte Sedimentation Rate 45 MM/HR (0-15)
[2021-06-17 12:05] LABS: Alanine Aminotransferase 29 U/L (0-40); Albumin Level 3.8 g/dL (3.5-5.0); Alkaline Phosphatase 115 U/L (39-117); Anion Gap 12 (12-20); Aspartate Amino Transferase 14 U/L (5-37); Bilirubin Total 0.2 mg/dL (0.0-1.0); Blood Urea Nitrogen 6 mg/dL (9-16); C Reactive Protein 3.18 mg/dL (< or = 0.50); Calcium 9.8 mg/dL (8.4-10.2); Carbon Dioxide 27 mmol/L (22-29); Chloride 105 mmol/L (96-108); Estimated Glomerular Filt Rate > 60; Glucose Random 96 mg/dL (60-115); Potassium 3.6 mmol/L (3.3-5.1); Sodium 140 mmol/L (135-145); Total Protein 7.4 g/dL (6.5-8.0)
== END 2021-06-17 10:29 | disposition home or self-care (01) ==
LOC: HO.LAB 10:28
PROVIDERS: Visit Provider Nurse Practitioner Family
DX: M06.9 Rheumatoid arthritis, unspecified (principal)
CPT/HCPCS: 36415; 80053; 85025; 85652; 86140

== ENCOUNTER 2021-08-20 11:00 | Outpatient (REF) | payer OTHER, SELFPAY ==
[2021-08-20 11:16] LABS: MANUAL DIFF FLAG NO
[2021-08-20 11:52] LABS: Basophils Percent Auto 0.4 % (0-2); Eosinophils Absolute Auto 0.2 X10*3/uL (0.0-0.4); Eosinophils Percent Auto 2.9 % (0-4); Hematocrit 39.7 % (42.0-52.0); Hemoglobin 13.3 g/dl (14.0-18.0); Imm Gran Abs Auto 0.03 X10*3/uL (0.00-0.03); Imm Gran Pct Auto 0.4 % (0.0-0.4); Lymphocytes Absolute Auto 2.3 X10*3/uL (1.2-4.9); Lymphocytes Percent Auto 29.2 % (20-40); Mean Corpuscular HGB Conc 33.5 g/dl (31.0-36.0); Mean Corpuscular Hemoglobin 30.7 pg (27.0-33.0); Mean Corpuscular Volume 91.7 fL (80.0-98.0); Mean Platelet Volume 9.6 fL (9.4-12.4); Monocytes Absolute Auto 0.5 X10*3/uL (0.1-1.2); Monocytes Percent Auto 6.4 % (2-11); Neutrophils Absolute Auto 4.8 x10*3/uL (2.0-8.3); Neutrophils Percent Auto 60.7 % (45-73); Platelet Count 332 X10*3/uL (160-400); Red Blood Count 4.33 X10*6/uL (4.60-5.80); Red Cell Distribution Width 11.8 % (11.0-16.0); White Blood Count 7.9 X10*3/uL (4.8-10.8)
[2021-08-20 11:59] LABS: Alanine Aminotransferase 23 U/L (0-40); Albumin Level 3.8 g/dL (3.5-5.0); Alkaline Phosphatase 131 U/L (39-117); Anion Gap 13 (12-20); Aspartate Amino Transferase 18 U/L (5-37); Bilirubin Total 0.5 mg/dL (0.0-1.0); Blood Urea Nitrogen 10 mg/dL (9-16); C Reactive Protein 7.73 mg/dL (< or = 0.50); Calcium 9.4 mg/dL (8.4-10.2); Carbon Dioxide 28 mmol/L (22-29); Chloride 102 mmol/L (96-108); Estimated Glomerular Filt Rate > 60; Glucose Random 100 mg/dL (60-115); Potassium 3.9 mmol/L (3.3-5.1); Sodium 139 mmol/L (135-145); Total Protein 7.9 g/dL (6.5-8.0)
[2021-08-20 12:35] LABS: Erythrocyte Sedimentation Rate 64 MM/HR (0-15)
== END 2021-08-20 11:01 | disposition home or self-care (01) ==
LOC: HO.LAB 11:00
PROVIDERS: Visit Provider Nurse Practitioner Family
DX: M06.9 Rheumatoid arthritis, unspecified (principal)
CPT/HCPCS: 36415; 80053; 85025; 85652; 86140

== ENCOUNTER 2021-09-20 13:05 | Outpatient (REF) | payer OTHER, SELFPAY ==
--- NOTE | ~2021-09-20 | XR_ITS ---
EXAMINATION: XR TEMPOROMANDIBULAR JOINT, BILATERAL CLINICAL INFORMATION: Arthralgias COMPARISON: None TECHNIQUE: 5 views of the temporomandibular joints XR/XR TMJ BI FINDINGS/IMPRESSION: There are no fractures or dislocations. There are degenerative changes of the bilateral temporomandibular joints with subchondral sclerosis and erosive changes of the bilateral mandibular condyles.
[2021-09-20 13:35] LABS: MANUAL DIFF FLAG NO
[2021-09-20 14:32] LABS: Basophils Percent Auto 0.4 % (0-2); Eosinophils Absolute Auto 0.2 X10*3/uL (0.0-0.4); Eosinophils Percent Auto 2.3 % (0-4); Hematocrit 38.4 % (42.0-52.0); Hemoglobin 12.7 g/dl (14.0-18.0); Imm Gran Abs Auto 0.03 X10*3/uL (0.00-0.03); Imm Gran Pct Auto 0.4 % (0.0-0.4); Lymphocytes Absolute Auto 1.8 X10*3/uL (1.2-4.9); Lymphocytes Percent Auto 23.5 % (20-40); Mean Corpuscular HGB Conc 33.1 g/dl (31.0-36.0); Mean Corpuscular Hemoglobin 30.4 pg (27.0-33.0); Mean Corpuscular Volume 91.9 fL (80.0-98.0); Mean Platelet Volume 9.9 fL (9.4-12.4); Monocytes Absolute Auto 0.6 X10*3/uL (0.1-1.2); Monocytes Percent Auto 7.3 % (2-11); Neutrophils Absolute Auto 5.2 x10*3/uL (2.0-8.3); Neutrophils Percent Auto 66.1 % (45-73); Platelet Count 313 X10*3/uL (160-400); Red Blood Count 4.18 X10*6/uL (4.60-5.80); Red Cell Distribution Width 11.7 % (11.0-16.0); White Blood Count 7.8 X10*3/uL (4.8-10.8)
[2021-09-20 14:58] LABS: Appearance Urine CLEAR; Color Urine YELLOW; Glucose Urine UA NEG (NEG); Leukocyte Esterase Urine NEG (NEG); Nitrite Urine NEG (NEG); Specific Gravity - Urine 1.015 (1.005-1.025); Urine Blood NEG (NEG); Urine Ketones 5 MG/DL (NEG); Urine Protein TRACE MG/DL (NEG-TRACE)
[2021-09-20 15:10] LABS: Alanine Aminotransferase 21 U/L (0-40); Albumin Level 3.9 g/dL (3.5-5.0); Alkaline Phosphatase 126 U/L (39-117); Anion Gap 15 (12-20); Aspartate Amino Transferase 19 U/L (5-37); Bilirubin Total 0.5 mg/dL (0.0-1.0); Blood Urea Nitrogen 7 mg/dL (9-16); C Reactive Protein 7.99 mg/dL (< or = 0.50); Calcium 9.4 mg/dL (8.4-10.2); Carbon Dioxide 27 mmol/L (22-29); Chloride 101 mmol/L (96-108); Estimated Glomerular Filt Rate > 60; Glucose Random 86 mg/dL (60-115); Potassium 3.9 mmol/L (3.3-5.1); Sodium 139 mmol/L (135-145)
[2021-09-20 15:17] LABS: Erythrocyte Sedimentation Rate 68 MM/HR (0-15)
[2021-09-23 07:08] LABS: HBS Num1 > 1000.00 mIU/mL (0-7.99); HBsAGNum1 0.18 S/CO (0.00-0.99); Hepatitis A Antibody IgM 0.25 Index (0-0.79); Hepatitis B Core Antibody Nonreactive (Nonreactive); Hepatitis B Surface Antigen Negative (Negative); ~Hepatitis A Antibody IgM Nonreactive (Nonreactive); ~Hepatitis B Surface Antibody REACTIVE (Nonreactive); ~Hepatitis C Antibody Nonreactive (Nonreactive)
[2021-09-24 15:41] LABS: TS Negative Control Passed; TS Panel A 0; TS Panel B 0; TS Positive Control Passed; TSpotTB Negative (Negative)
== END 2021-09-20 13:06 | disposition home or self-care (01) ==
LOC: HO.XRAY 13:05
PROVIDERS: Visit Provider Nurse Practitioner Family
DX: Z11.1 Encounter for screening for respiratory tuberculosis (principal); M26.629 Arthralgia of temporomandibular joint, unspecified side; R79.82 Elevated C-reactive protein (CRP); M06.9 Rheumatoid arthritis, unspecified
CPT/HCPCS: 36415; 70330; 80053; 81003; 85025; 85652; 86140; 86481; 86704; 86706; 86709; 86803; 87340; 99212

== ENCOUNTER → 2021-10-08 09:40 | Outpatient (BNVA) | payer OTHER, SELFPAY | PROVIDERS: PCP Nurse Practitioner; Visit Provider Nurse Practitioner Family | DX: M06.9 Rheumatoid arthritis, unspecified (principal) | CPT/HCPCS: 99212 ==

== ENCOUNTER 2021-12-02 09:19 | Outpatient (REF) | payer OTHER, SELFPAY ==
[2021-12-02 09:37] LABS: MANUAL DIFF FLAG NO
[2021-12-02 10:06] LABS: Basophils Percent Auto 0.5 % (0-2); Eosinophils Absolute Auto 0.2 X10*3/uL (0.0-0.4); Eosinophils Percent Auto 2.3 % (0-4); Imm Gran Abs Auto 0.04 X10*3/uL (0.00-0.03); Imm Gran Pct Auto 0.5 % (0.0-0.4); Lymphocytes Absolute Auto 3.6 X10*3/uL (1.2-4.9); Lymphocytes Percent Auto 45.3 % (20-40); Mean Corpuscular HGB Conc 33.3 g/dl (31.0-36.0); Mean Corpuscular Hemoglobin 30.7 pg (27.0-33.0); Mean Corpuscular Volume 92.2 fL (80.0-98.0); Mean Platelet Volume 10.2 fL (9.4-12.4); Monocytes Absolute Auto 0.5 X10*3/uL (0.1-1.2); Monocytes Percent Auto 6.8 % (2-11); Neutrophils Absolute Auto 3.6 x10*3/uL (2.0-8.3); Neutrophils Percent Auto 44.6 % (45-73); Platelet Count 235 X10*3/uL (160-400); Red Blood Count 4.88 X10*6/uL (4.60-5.80)
[2021-12-02 10:21] LABS: Alanine Aminotransferase 34 U/L (0-40); Aspartate Amino Transferase 16 U/L (5-37); C Reactive Protein 1.53 mg/dL (< or = 0.50); Estimated Glomerular Filt Rate > 60
[2021-12-02 11:02] LABS: Erythrocyte Sedimentation Rate 11 MM/HR (0-15)
== END 2021-12-02 09:20 | disposition home or self-care (01) ==
LOC: HO.LAB 09:19
PROVIDERS: Visit Provider Nurse Practitioner Family
DX: M06.9 Rheumatoid arthritis, unspecified (principal); Z79.899 Other long term (current) drug therapy
CPT/HCPCS: 36415; 82565; 84450; 84460; 85025; 85652; 86140

== ENCOUNTER → 2021-12-23 09:10 | Outpatient (BNVA) | payer OTHER, SELFPAY | PROVIDERS: PCP Nurse Practitioner; Visit Provider Nurse Practitioner Family | DX: M06.9 Rheumatoid arthritis, unspecified (principal) | CPT/HCPCS: 99212 ==

== ENCOUNTER 2022-02-14 09:42 | Outpatient (REF) | payer OTHER, SELFPAY ==
[2022-02-14 10:16] LABS: MANUAL DIFF FLAG NO
[2022-02-14 10:47] LABS: Basophils Absolute Auto 0.1 X10*3/uL (0.0-0.2); Basophils Percent Auto 0.8 % (0-2); Eosinophils Absolute Auto 0.5 X10*3/uL (0.0-0.4); Eosinophils Percent Auto 6.4 % (0-4); Hematocrit 43.1 % (42.0-52.0); Hemoglobin 14.9 g/dl (14.0-18.0); Imm Gran Abs Auto 0.02 X10*3/uL (0.00-0.03); Imm Gran Pct Auto 0.3 % (0.0-0.4); Lymphocytes Absolute Auto 3.2 X10*3/uL (1.2-4.9); Lymphocytes Percent Auto 40.4 % (20-40); Mean Corpuscular HGB Conc 34.6 g/dl (31.0-36.0); Mean Corpuscular Hemoglobin 32.5 pg (27.0-33.0); Mean Corpuscular Volume 93.9 fL (80.0-98.0); Mean Platelet Volume 9.9 fL (9.4-12.4); Monocytes Absolute Auto 0.5 X10*3/uL (0.1-1.2); Monocytes Percent Auto 5.9 % (2-11); Neutrophils Absolute Auto 3.7 x10*3/uL (2.0-8.3); Neutrophils Percent Auto 46.2 % (45-73); Platelet Count 262 X10*3/uL (160-400); Red Blood Count 4.59 X10*6/uL (4.60-5.80); Red Cell Distribution Width 12.5 % (11.0-16.0)
[2022-02-14 11:45] LABS: Erythrocyte Sedimentation Rate 18 MM/HR (0-15)
[2022-02-14 11:59] LABS: Alanine Aminotransferase 32 U/L (0-40); Albumin Level 4.4 g/dL (3.5-5.0); Alkaline Phosphatase 100 U/L (39-117); Anion Gap 12 (12-20); Aspartate Amino Transferase 21 U/L (5-37); Blood Urea Nitrogen 11 mg/dL (9-16); Calcium 9.6 mg/dL (8.4-10.2); Carbon Dioxide 27 mmol/L (22-29); Chloride 103 mmol/L (96-108); Estimated Glomerular Filt Rate > 60; Glucose Random 104 mg/dL (60-115); Potassium 3.6 mmol/L (3.3-5.1); Sodium 138 mmol/L (135-145); Total Protein 7.6 g/dL (6.5-8.0)
[2022-02-14 12:32] LABS: Bilirubin Total 0.6 mg/dL (0.0-1.0)
== END 2022-02-14 09:43 | disposition home or self-care (01) ==
LOC: HO.LAB 09:42
PROVIDERS: Visit Provider Nurse Practitioner Family
DX: M06.9 Rheumatoid arthritis, unspecified (principal)
CPT/HCPCS: 36415; 80053; 85025; 85652; 86140

== ENCOUNTER → 2022-03-05 12:58 | Outpatient (BNVA) | payer OTHER, SELFPAY | PROVIDERS: PCP Nurse Practitioner; Visit Provider Nurse Practitioner Family | DX: M05.9 Rheumatoid arthritis with rheumatoid factor, unspecified (principal); Z79.899 Other long term (current) drug therapy | CPT/HCPCS: 99212 ==

== ENCOUNTER 2022-04-14 09:11 | Outpatient (REF) | payer OTHER, SELFPAY ==
[2022-04-14 09:26] LABS: MANUAL DIFF FLAG NO
[2022-04-14 10:20] LABS: Basophils Percent Auto 0.6 % (0-2); Eosinophils Absolute Auto 0.2 X10*3/uL (0.0-0.4); Eosinophils Percent Auto 2.5 % (0-4); Hematocrit 44.1 % (42.0-52.0); Hemoglobin 15.1 g/dl (14.0-18.0); Imm Gran Abs Auto 0.02 X10*3/uL (0.00-0.03); Imm Gran Pct Auto 0.3 % (0.0-0.4); Lymphocytes Absolute Auto 2.5 X10*3/uL (1.2-4.9); Lymphocytes Percent Auto 35.4 % (20-40); Mean Corpuscular HGB Conc 34.2 g/dl (31.0-36.0); Mean Corpuscular Hemoglobin 32.4 pg (27.0-33.0); Mean Corpuscular Volume 94.6 fL (80.0-98.0); Mean Platelet Volume 10.1 fL (9.4-12.4); Monocytes Absolute Auto 0.5 X10*3/uL (0.1-1.2); Monocytes Percent Auto 6.8 % (2-11); Neutrophils Absolute Auto 3.9 x10*3/uL (2.0-8.3); Neutrophils Percent Auto 54.4 % (45-73); Platelet Count 232 X10*3/uL (160-400); Red Blood Count 4.66 X10*6/uL (4.60-5.80); Red Cell Distribution Width 12.1 % (11.0-16.0); White Blood Count 7.2 X10*3/uL (4.8-10.8)
[2022-04-14 11:11] LABS: Erythrocyte Sedimentation Rate 11 MM/HR (0-15)
[2022-04-14 11:15] LABS: Alanine Aminotransferase 65 U/L (0-40); Aspartate Amino Transferase 34 U/L (5-37); C Reactive Protein 0.69 mg/dL (< or = 0.50); Estimated Glomerular Filt Rate > 60
== END 2022-04-14 09:12 | disposition home or self-care (01) ==
LOC: HO.LAB 09:11
PROVIDERS: Visit Provider Nurse Practitioner Family
DX: M06.9 Rheumatoid arthritis, unspecified (principal); Z79.899 Other long term (current) drug therapy
CPT/HCPCS: 36415; 82565; 84450; 84460; 85025; 85652; 86140

== ENCOUNTER 2022-05-08 09:18 | Outpatient (REF) | payer OTHER, SELFPAY ==
[2022-05-08 10:55] LABS: Alanine Aminotransferase 43 U/L (0-40); Aspartate Amino Transferase 26 U/L (5-37)
== END 2022-05-08 09:19 | disposition home or self-care (01) ==
LOC: HO.LAB 09:18
PROVIDERS: PCP Nurse Practitioner; Visit Provider Nurse Practitioner Family
DX: Z79.899 Other long term (current) drug therapy (principal)
CPT/HCPCS: 36415; 84450; 84460

== ENCOUNTER → 2022-05-22 15:48 | Outpatient (BNVA) | payer OTHER, SELFPAY | PROVIDERS: PCP Nurse Practitioner; Visit Provider Nurse Practitioner Family | DX: M05.9 Rheumatoid arthritis with rheumatoid factor, unspecified (principal); Z79.899 Other long term (current) drug therapy | CPT/HCPCS: 99212 ==

== ENCOUNTER 2022-05-23 08:30 | Outpatient (REF) | payer OTHER, SELFPAY ==
[2022-05-23 09:39] LABS: Alanine Aminotransferase 51 U/L (0-40); Aspartate Amino Transferase 35 U/L (5-37)
== END 2022-05-23 08:31 | disposition home or self-care (01) ==
LOC: HO.LAB 08:30
PROVIDERS: PCP Nurse Practitioner; Visit Provider Nurse Practitioner Family
DX: Z79.899 Other long term (current) drug therapy (principal)
CPT/HCPCS: 36415; 84450; 84460

== ENCOUNTER 2022-09-29 14:21 | Outpatient (AMB) | payer MEDICAID, SELFPAY ==
--- NOTE | 2022-09-29 14:38 | A.OFFVIS_ITS ---
Intake Intake Visit Reasons: ov- LEft knee pain Intake Note: Francisco is a 46 year old male who presents today for a follow up for his left knee pain. Patient reports off and on pain for many years, pain has gotten worse in the past 2 months ago. Hx of drainage. No hx of injections. No hx of PT. Pain is on the lateral aspect of the left knee. His pain is worse when using the stairs, getting up from a sitting position, and walking. Allergies aspirin [ASPIRIN] Allergy (Unknown, Verified 09/29/22 14:42) UNKNOWN ciprofloxacin [CIPROFLOXACIN] Allergy (Unknown, Verified 09/29/22 14:42) UNKNOWN HPI ov- LEft knee pain HPI Details 46-year-old male, who is [place] speaking, presents in the office today for an evaluation of left knee pain. The patient reports intermittent pain for many years. He states the pain has increased in the last two months. He confirms his pain is on the lateral aspect of his left knee. He claims to have an increase in pain with use of stairs, getting up from a seated positions, and ambulating. Patient has a history of cortisone injection in the left knee. Patient has a history of left knee drainage. Patient denies a history of physical therapy. PFSH Medical History Hypertension Rheumatoid arthritis Surgical History Hx of cholecystectomy Family History Mother Arthritis Father Asthma Social History Alcohol intake: never Patient Tobacco Use Status: Current everyday Tobacco user Tobacco use type: Cigarette e-Cigarette/Vaping Use: Never Used Review of Systems Const All systems reviewed & are unremarkable except as noted in HPI and below Physical Exam Const General: cooperative and no acute distress Orientation/consciousness: patient oriented x3 Resp Effort & Inspection: normal respiratory effort and able to speak in complete sentences Cardio Peripheral pulses: Peripheral pulses 2+ throughout Neuro General: patient oriented x3 Extrem Other: Left knee: Normal to inspection. No ecchymosis, erythema, or joint effusion. No tenderness to palpation to the medial or lateral joint lines. Full knee extension and flexion. Negative Joan's. Negative anterior draw. NVI. Psych Mental Status: mental status grossly normal Office Procedures Joint Injection/Drain Joint Injection/Drain Primary Site: left knee Prep: site was prepped using aseptic technique and injection warnings given Injected: 80 mg of, DepoMedrol, with 8 mL of (2% plain lido ) and in the joint Procedure: The patient tolerated the procedure well, but had some pain with the injection and there was some relief with the local anesthesia Coding - Large joint Procedure code (CPT) selection complete Results Reviewed Results Reviewed: 09/29/22 14:46 Lidocaine HCl 2 % MPF [Xylocaine 2 % MPF] 5 ml .ROUTE .STK-MED ONE 09/29/22 14:47 methylPREDNISolone acetate [DEPO-MedroL] 80 mg .ROUTE .STK-MED ONE Assessment & Plan Assessment & Plan (1) Rheumatoid arthritis involving left knee: Code(s): M06.9 - Rheumatoid arthritis, unspecified Plan Mr. Nehemias Almodovar is a 46-year-old male, who is [place] speaking, presents in the office today for an evaluation of left knee pain. The patient reports intermittent pain for many years. He states the pain has increased in the last two months. He confirms his pain is on the lateral aspect of his left knee. He claims to have an increase in pain with use of stairs, getting up from a seated positions, and ambulating. Patient has a history of cortisone injection in the left knee. Patient has a history of left knee drainage. Patient denies a history of physical therapy. The patient was offered a cortisone injection in the left knee with 80 mg of DepoMedrol. The patient was explained the risk, benefits, and alternatives to receiving this injection. After receiving consent for the injection, the patient had the procedure done while in office today. The patient tolerated the procedure well with no complications. Follow up will be PRN, or sooner if needed. Patient Instructions: Scribed for Aleyda Schneider PA-C by Priscilla Dodson medical/surgery registered nurse, on 09/29/2022 at 2:40 pm, EST. Your attestation Coding Level of Care Code Est Pt Level 3 (48646) Diagnoses Rheumatoid arthritis involving left knee M06.9 CPT Codes Coding - Large joint: 64273 - Large joint ([id number])
== END 2022-09-29 14:58 | disposition home or self-care (01) ==
PROVIDERS: PCP Nurse Practitioner; Visit Provider Physician Assistant
DX: M06.062 Rheumatoid arthritis without rheumatoid factor, left knee (principal); M25.562 Pain in left knee
CPT/HCPCS: 20610; 99214

== ENCOUNTER → 2022-09-29 14:21 | Outpatient (BNVA) | payer MEDICAID, SELFPAY | PROVIDERS: PCP Nurse Practitioner; Visit Provider Physician Assistant | DX: M06.9 Rheumatoid arthritis, unspecified (principal) | CPT/HCPCS: 20610; J1040 ==

== ENCOUNTER 2023-06-02 07:58 | Outpatient (REF) | payer MEDICAID, SELFPAY ==
[2023-06-02 08:32] LABS: MANUAL DIFF FLAG NO
[2023-06-02 09:25] LABS: Alanine Aminotransferase 44 U/L (0-40); Albumin Level 4.2 g/dL (3.5-5.0); Alkaline Phosphatase 111 U/L (39-117); Anion Gap 14 (12-20); Aspartate Amino Transferase 24 U/L (5-37); Bilirubin Total 0.7 mg/dL (0.0-1.0); Blood Urea Nitrogen 6 mg/dL (9-16); C Reactive Protein 1.32 mg/dL (< or = 0.50); Calcium 9.3 mg/dL (8.4-10.2); Carbon Dioxide 30 mmol/L (22-29); Chloride 102 mmol/L (96-108); Estimated Glomerular Filt Rate > 60; Glucose Random 131 mg/dL (60-115); Potassium 3.5 mmol/L (3.3-5.1); Sodium 142 mmol/L (135-145); Total Protein 7.9 g/dL (6.5-8.0)
[2023-06-02 09:40] LABS: Basophils Absolute Auto 0.1 X10*3/uL (0.0-0.2); Basophils Percent Auto 0.6 % (0-2); Eosinophils Absolute Auto 0.4 X10*3/uL (0.0-0.4); Eosinophils Percent Auto 4.6 % (0-4); Hematocrit 46.4 % (42.0-52.0); Hemoglobin 15.8 g/dl (14.0-18.0); Imm Gran Abs Auto 0.02 X10*3/uL (0.00-0.03); Imm Gran Pct Auto 0.2 % (0.0-0.4); Lymphocytes Absolute Auto 3.6 X10*3/uL (1.2-4.9); Lymphocytes Percent Auto 44.8 % (20-40); Mean Corpuscular HGB Conc 34.1 g/dl (31.0-36.0); Mean Corpuscular Hemoglobin 31.5 pg (27.0-33.0); Mean Corpuscular Volume 92.6 fL (80.0-98.0); Mean Platelet Volume 10.5 fL (9.4-12.4); Monocytes Absolute Auto 0.5 X10*3/uL (0.1-1.2); Monocytes Percent Auto 6.7 % (2-11); Neutrophils Absolute Auto 3.5 x10*3/uL (2.0-8.3); Neutrophils Percent Auto 43.1 % (45-73); Platelet Count 217 X10*3/uL (160-400); Red Blood Count 5.01 X10*6/uL (4.60-5.80); Red Cell Distribution Width 12.2 % (11.0-16.0)
[2023-06-02 09:46] LABS: HBc Num1 0.09 S/CO (0.00-0.79); HBsAGNum1 0.38 S/CO (0.00-0.99); Hepatitis A Antibody IgM 0.51 Index (0-0.79); Hepatitis B Core Antibody Nonreactive (Nonreactive); Hepatitis B Surface Antigen Negative (Negative); ~Hepatitis A Antibody IgM Nonreactive (Nonreactive); ~Hepatitis B Surface Antibody REACTIVE (Nonreactive); ~Hepatitis C Antibody Nonreactive (Nonreactive)
[2023-06-02 10:58] LABS: Erythrocyte Sedimentation Rate 14 MM/HR (0-15)
[2023-06-05 07:28] LABS: TS Negative Control Passed; TS Panel A 1; TS Panel B 0; TS Positive Control Passed; TSpotTB Negative (Negative)
== END 2023-06-02 07:59 | disposition home or self-care (01) ==
LOC: HO.LAB 07:58
PROVIDERS: PCP Nurse Practitioner; Visit Provider Student in an Organized Health Care Education/Training Program
DX: Z11.59 Encounter for screening for other viral diseases (principal); Z11.7 Encounter for testing for latent tuberculosis infection; M06.9 Rheumatoid arthritis, unspecified; Z79.899 Other long term (current) drug therapy
CPT/HCPCS: 36415; 80053; 85025; 85652; 86140; 86481; 86704; 86706; 86709; 86803; 87340; 99212

== ENCOUNTER 2023-06-02 10:21 | Outpatient (AMB) | payer MEDICAID, SELFPAY ==
--- NOTE | 2023-06-02 10:23 | MHC.OFFVIS ---
Intake Vital Signs 06/02/23 10:27 Height 5 ft 6 in Weight 203 lb 0.732 oz BMI 32.8 BP 122/78 Blood Pressure Location Lt brachial Position Sitting Pulse 84 Pulse Source Pulse Oximeter Pulse Oximetry (%) 98 Intake Visit Reasons: RA/CM Intake Note: Pt presents today for follow up last seen by Ofe May 2022. Reports L ankle pain worse when walking Using Enbrel Coconut Jelly Roller Required: Yes Coconut Jelly Roller Language: Level Vial Grinder Name: Lisa [id number] Information Interpreted: clinical only Accompanied by: Self / Same As Patient Allergies aspirin [ASPIRIN] Allergy (Unknown, Verified 06/02/23 10:30) UNKNOWN ciprofloxacin [CIPROFLOXACIN] Allergy (Unknown, Verified 06/02/23 10:30) UNKNOWN Medication List - Last Reconciled 06/02/23 by Dayan Gallagher MD diclofenac sodium 1% grams topical BID PRN etanercept (Enbrel SureClick) 50 mg subcut QWEEK lisinopril-hydrochlorothiazide 20-25 mg 1 tab PO DAILY pravastatin 40 mg PO DAILY tramadol 50 mg PO QID PRN HPI HPI Comments History of Present Illness Details 47yoM presents for follow-up of Seropositive Rheumatoid Arthritis. He was last seen by Qiana Cano 05/2022. States that he missed his last appointment with us due to a COVID infection. Patient continues on Enbrel. States that for the last 2 months he has been having some left ankle pain, worse with walking. Has been doing fairly well otherwise. Believes that he was feeling a little better when on methotrexate. PFSH Medical History Hypertension Rheumatoid arthritis Surgical History Hx of cholecystectomy Family History Mother Arthritis Father Asthma Social History Alcohol intake: never Patient Tobacco Use Status: Current everyday Tobacco user Tobacco use type: Cigarette e-Cigarette/Vaping Use: Never Used Review of Systems Musc Reports arthralgias, Reports joint swelling and Reports stiffness Physical Exam Vital Signs: Last Vital Signs Pulse 84 06/02/23 10:27 BP 122/78 06/02/23 10:27 Pulse Ox 98 06/02/23 10:27 BMI result Body Mass Index 32.8 Const General: cooperative, healthy appearing and comfortable Nutritional Appearance: obese Orientation/consciousness: patient oriented x3 Limitations: no limitations HEENT Head: Yes normocephalic and Yes atraumatic Resp Effort & Inspection: normal respiratory effort and able to speak in complete sentences Auscultation: clear to auscultation bilaterally Cardio Rate: regular rate Rhythm: regular rhythm Skin General skin exam: no rashes or lesions noted Neuro General: patient oriented x3 Extrem Other: Mild synovial thickening of right 2nd and 3rd MCPs with no synovitis Left 3rd and 4th MCP swelling, left 4th MCP tenderness One neck deformity of left middle finger Left ankle tenderness at the lateral malleolus Negative MTP squeeze test bilaterally Normal range of motion of both elbows and shoulders without pain Assessment & Plan Assessment & Plan (1) Rheumatoid arthritis: Comment: ++RF+++CCP Humira: March 2018- July 2018- restarted September 2020- present Kevzara: January 2018- April 2018- Did not take, not approved by insurance Enbrel: April 2017- July 2017- no information about efficacy/tolerance found: Restarted October 2021 to present Methotrexate: June 2016- July 2018- not clear why stopped, lost to follow up: Restarted October 2021 to April 2021 DC due to increased LFTs. Plaquenil: March 2016- July 2018- not clear why stopped, lost to follow up Code(s): M06.9 - Rheumatoid arthritis, unspecified Plan: 47-year-old male with seropositive RA returns for follow-up, he is on Enbrel 50 mg weekly. Doing fairly well on Enbrel 50 mg weekly but continues to have a couple of swollen and tender joints. Inflammatory markers mildly elevated. Will prescribe prednisone taper for relief. For now continue with Enbrel 50 mg weekly Labs before next visit in 4 months (2) High risk medication use: Code(s): Z79.899 - Other termite technician (current) drug therapy Plan I spent 25 minutes reviewing patient's chart, evaluating patient, ordering diagnostic workup, counseling patient and documenting in the chart Orders: Orders C Reactive Protein 4 Months M06.9 - Rheumatoid arthritis, unspecified Complete Blood Count Auto Diff 4 Months M06.9 - Rheumatoid arthritis, unspecified Comprehensive Met. Panel 4 Months M06.9 - Rheumatoid arthritis, unspecified Erythrocyte Sedimentation Rate 4 Months M06.9 - Rheumatoid arthritis, unspecified Medications: New prednisone Take 4 tabs daily for 1 week, 3 tabs daily for 1 week, 2 tabs daily for 1 week then 1 tab daily for 1 week then stop 70 tabs 0RF Refilled etanercept (Enbrel SureClick) 50 mg subcut QWEEK 4 mL 5RF M06.9 - Rheumatoid arthritis, unspecified Coding Level of Care Code Est Pt Level 4 (04561) Diagnoses Rheumatoid arthritis M06.9 High risk medication use Z79.899
[2023-06-02 10:27] VITALS: BP 122/78; PULSE 84; O2SAT 98; BMI 32.8
== END 2023-06-02 10:48 | disposition home or self-care (01) ==
PROVIDERS: PCP Nurse Practitioner; Referring Provider Nurse Practitioner; Visit Provider Student in an Organized Health Care Education/Training Program
DX: M06.9 Rheumatoid arthritis, unspecified (principal); Z79.899 Other long term (current) drug therapy
CPT/HCPCS: 99214

== ENCOUNTER 2023-09-25 08:12 | Outpatient (REF) | payer MEDICAID, SELFPAY ==
[2023-09-25 10:02] LABS: MANUAL DIFF FLAG NO
[2023-09-25 10:23] LABS: Basophils Percent Auto 0.5 % (0-2); Eosinophils Absolute Auto 0.2 X10*3/uL (0.0-0.4); Eosinophils Percent Auto 2.5 % (0-4); Hematocrit 43.9 % (42.0-52.0); Hemoglobin 15.4 g/dl (14.0-18.0); Imm Gran Abs Auto 0.02 X10*3/uL (0.00-0.03); Imm Gran Pct Auto 0.3 % (0.0-0.4); Lymphocytes Absolute Auto 2.7 X10*3/uL (1.2-4.9); Lymphocytes Percent Auto 41.7 % (20-40); Mean Corpuscular HGB Conc 35.1 g/dl (31.0-36.0); Mean Corpuscular Hemoglobin 32.5 pg (27.0-33.0); Mean Corpuscular Volume 92.6 fL (80.0-98.0); Monocytes Absolute Auto 0.6 X10*3/uL (0.1-1.2); Monocytes Percent Auto 9.1 % (2-11); Neutrophils Percent Auto 45.9 % (45-73); Platelet Count 202 X10*3/uL (160-400); Red Blood Count 4.74 X10*6/uL (4.60-5.80); Red Cell Distribution Width 11.9 % (11.0-16.0); White Blood Count 6.5 X10*3/uL (4.8-10.8)
[2023-09-25 11:01] LABS: Erythrocyte Sedimentation Rate 14 MM/HR (0-15)
[2023-09-25 12:00] LABS: Alanine Aminotransferase 70 U/L (0-40); Anion Gap 14 (12-20); Aspartate Amino Transferase 37 U/L (5-37); Bilirubin Total 0.3 mg/dL (0.0-1.0); Blood Urea Nitrogen 6 mg/dL (9-16); C Reactive Protein 1.41 mg/dL (< or = 0.50); Carbon Dioxide 27 mmol/L (22-29); Chloride 103 mmol/L (96-108); Estimated Glomerular Filt Rate > 60; Glucose Random 98 mg/dL (60-115); Potassium 3.8 mmol/L (3.3-5.1); Sodium 140 mmol/L (135-145)
[2023-09-25 12:01] LABS: Albumin Level 4.1 g/dL (3.5-5.0); Alkaline Phosphatase 109 U/L (39-117); Total Protein 7.7 g/dL (6.5-8.0)
== END 2023-09-25 08:13 | disposition home or self-care (01) ==
LOC: HO.LAB 08:12
PROVIDERS: Visit Provider Student in an Organized Health Care Education/Training Program
DX: M06.9 Rheumatoid arthritis, unspecified (principal)
CPT/HCPCS: 36415; 80053; 85025; 85652; 86140

== ENCOUNTER 2023-10-01 13:46 | Outpatient (AMB) | payer MEDICAID, SELFPAY ==
--- NOTE | 2023-10-01 13:49 | MHC.OFFVIS ---
Vital Signs 10/01/23 13:50 Height 5 ft 6 in Weight 204 lb BMI 32.9 BP 120/64 Blood Pressure Location Lt brachial Position Sitting Pulse 80 Pulse Source Pulse Oximeter Pulse Oximetry (%) 96 Oxygen Delivery Method Room Air Intake Visit Reasons: RA Intake Note: Patient is here to follow up on RA today. Connie Scratcher Services: Connie Scratcher Present Connie Scratcher Name: [id number] Information Interpreted: non-clinical & clinical Allergies aspirin [ASPIRIN] Allergy (Unknown, Verified 10/01/23 13:51) UNKNOWN ciprofloxacin [CIPROFLOXACIN] Allergy (Unknown, Verified 10/01/23 13:51) UNKNOWN Medication List - Last Reconciled 10/01/23 by Dayan Gallagher MD diclofenac sodium 1% grams topical BID PRN etanercept (Enbrel SureClick) 50 mg subcut QWEEK lisinopril-hydrochlorothiazide 20-25 mg 1 tab PO DAILY pravastatin 40 mg PO DAILY tramadol 50 mg PO QID PRN HPI Comments Details: 47yoM presents for follow-up of Seropositive Rheumatoid Arthritis. He was last seen 05/2023. Remains on Enbrel mg weekly. Doing very well overall. No swollen or tender joints. No recent infections. PFSH Medical History Hypertension Rheumatoid arthritis Surgical History Hx of cholecystectomy Family History Mother Arthritis Father Asthma Social History Alcohol intake: never Patient Tobacco Use Status: Current everyday Tobacco user Tobacco use type: Cigarette e-Cigarette/Vaping Use: Never Used Review of Systems Musc Denies arthralgias, Denies joint swelling and Denies stiffness Physical Exam Vital Signs: Last Vital Signs Pulse 80 10/01/23 13:50 BP 120/64 10/01/23 13:50 Pulse Ox 96 10/01/23 13:50 Oxygen Delivery Method Room Air 10/01/23 13:50 BMI result Body Mass Index 32.9 Const General: cooperative, healthy appearing and comfortable Nutritional Appearance: obese Orientation/consciousness: patient oriented x3 Limitations: no limitations HEENT Head: Yes normocephalic and Yes atraumatic Resp Effort & Inspection: normal respiratory effort and able to speak in complete sentences Auscultation: clear to auscultation bilaterally Cardio Rate: regular rate Rhythm: regular rhythm Skin General skin exam: no rashes or lesions noted Neuro General: patient oriented x3 Extrem Other: synovial thickening of right 2nd and 3rd MCPs with no synovitis Left 3rd and 4th MCP boggy synovial thickening, with no acute swelling or tenderness Santa Claus neck deformity of left middle finger No ankle swelling or tenderness bilaterally Negative MTP squeeze test bilaterally Normal range of motion of both elbows and shoulders without pain Assessment & Plan Assessment & Plan (1) Rheumatoid arthritis: Comment: ++RF+++CCP dx 2017 Plaquenil: March 2016- July 2018- not clear why stopped, lost to follow up Methotrexate: June 2016- July 2018- not clear why stopped, lost to follow up: Restarted October 2021 to April 2021 DC due to increased LFTs. Humira: March 2018- July 2018- Kevzara: January 2018- April 2018- Did not take, not approved by insurance Enbrel: April 2017- July 2017- no information about efficacy/tolerance found: Restarted October 2021 to present effective Code(s): M06.9 - Rheumatoid arthritis, unspecified Category: Medical Plan: 47-year-old male with seropositive RA returns for follow-up, he is on Enbrel 50 mg weekly. Doing quite well on 50 mg once weekly. There is no active synovitis today Continue Enbrel 50 mg once weekly Labs before next visit in 6 months (2) High risk medication use: Code(s): Z79.899 - Other intermediate designer (current) drug therapy Category: Medical Plan: Side effects of Enbrel were discussed with the patient in detail including increased risk of infection, demyelinating disease, reactivation of latent TB, possible increased risk of solid and skin tumors. Patient fully aware. Advised patient to seek medical care JESUS if patient has an infection and advised patient to stop the medication until the infection is resolved. (3) Transaminitis: Code(s): R74.01 - Elevation of levels of liver transaminase levels Category: Medical Plan: Patient denies alcohol consumption. His hepatitis panel is negative. Related to fatty liver. Follow-up with PCP Plan I spent 25 minutes reviewing patient's chart, evaluating patient, ordering diagnostic workup, counseling patient and documenting in the chart Orders: Orders Comprehensive Met. Panel 6 Months M06.9 - Rheumatoid arthritis, unspecified Erythrocyte Sedimentation Rate 6 Months M06.9 - Rheumatoid arthritis, unspecified Complete Blood Count Auto Diff 6 Months M06.9 - Rheumatoid arthritis, unspecified C Reactive Protein 6 Months M06.9 - Rheumatoid arthritis, unspecified Coding Level of Care Code Est Pt Level 4 (43296) Diagnoses Rheumatoid arthritis M06.9 High risk medication use Z79.899 Transaminitis R74.01
[2023-10-01 13:50] VITALS: BP 120/64; PULSE 80; O2SAT 96; BMI 32.9
== END 2023-10-01 14:21 | disposition home or self-care (01) ==
PROVIDERS: PCP Nurse Practitioner; Visit Provider Student in an Organized Health Care Education/Training Program
DX: M06.9 Rheumatoid arthritis, unspecified (principal); Z79.899 Other long term (current) drug therapy; R74.01 Elevation of levels of liver transaminase levels
CPT/HCPCS: 99214

== ENCOUNTER → 2023-10-01 13:46 | Outpatient (BNVA) | payer MEDICAID, SELFPAY | PROVIDERS: PCP Nurse Practitioner; Visit Provider Student in an Organized Health Care Education/Training Program | DX: M05.9 Rheumatoid arthritis with rheumatoid factor, unspecified (principal); R74.01 Elevation of levels of liver transaminase levels; Z79.899 Other long term (current) drug therapy | CPT/HCPCS: 99212 ==

== ENCOUNTER 2024-05-18 09:17 | Outpatient (REF) | payer MEDICAID, SELFPAY ==
[2024-05-18 09:46] LABS: MANUAL DIFF FLAG NO
--- OUTSIDE RECORDS SUMMARY | 2024-05-18 10:06 | XMS_ITS | Clinical Summary ---
Author Organization [facility] Address [address] [place] [address] Care Team Providers Care Retail Field Representative Name Role Phone July Alonzo [facility] Primary Care Provider [phone] Source Comments PLEASE NOTE, if this patient is a minor, it may be UNLAWFUL to discuss sensitive information that is contained in these records (such as FAMILY PLANNING, MENTAL HEALTH or SUBSTANCE ABUSE) with the minor patient's parent or other person without the patient's specific authorization.[facility] Allergies Active Allergy Reactions Criticality Noted Date Comments Aspirin, Buffered Swelling 08/13/2016 Ciprofloxacin Rash 08/13/2016 Iodinated Contrast Media 08/28/2023 Medications caneIndications: Rheumatoid arthritis with positive rheumatoid factor, involving unspecified site (HCC-CMS) Use daily as needed. Lifetime need. 1 Each 01/12/20 19 Active etanercept (ENBREL) 50 mg/mL (1 mL) injection Inject 50 mg into the skin every 7 (seven) days 08/15/19 23 Active diclofenac sodium (VOLTAREN) 1 % gelIndications:R heumatoid arthritis involving multiple sites with positive rheumatoid factor (HCC-CMS) APPLY TOPICALLY 2 (TWO) TIMES DAILY NEEDED FOR PAIN 100 g 2 12/19/19 23 Active naloxone (NARCAN) 4 mg/actuation nasal sprayIndications :Rheumatoid arthritis with positive rheumatoid factor, involving unspecified site (HCC-CMS) Place 1 Maria Stein into the nostril(s) as needed (Overdose) 1 Each 08/28/19 24 Active diclofenac sodium (VOLTAREN) [address] tabletIndication s:Rheumatoid arthritis with positive rheumatoid factor, involving unspecified site (HCC-CMS) Take 1 Tablet by mouth 2 (two) times daily as needed for other reason (pain) 60 Tablet 3 12/29/19 24 Active pravastatin (PRAVACHOL) 40 mg tabletIndication s:Hypercholester emia TAKE 1 TABLET BY MOUTH EVERY DAY 90 Tablet 03/28/19 25 Active lisinopriL-hydro chlorothiazide 20-25 mg per tabletIndication s:Essential hypertension TAKE 1 TABLET BY MOUTH EVERY DAY 90 Tablet 04/23/19 25 Active traMADoL (ULTRAM) 50 mg tabletIndication s:Rheumatoid arthritis with positive rheumatoid factor, involving unspecified site (HCC-CMS) TAKE 1 TABLET BY MOUTH 4 TIMES DAILY NEEDED FOR PAIN 120 Tablet 04/26/19 25 Active lisinopriL-hydro chlorothiazide 20-25 mg per tabletIndication s:Essential hypertension TAKE 1 TABLET BY MOUTH EVERY DAY 90 Tablet 01/25/20 24 025 Discontinued traMADoL (ULTRAM) 50 mg tabletIndication s:Rheumatoid arthritis with positive rheumatoid factor, involving unspecified site (HCC-CMS) Take 1 Tablet by mouth 4 (four) times daily as needed for pain 120 Tablet 03/25/19 25 025 Discontinued Active Problems Problem Noted Date Diagnosed Date Chronic, continuous use of opioids 12/13/2020 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 On HCTZ-lisinopril 25-20 mg Former smoker 06/27/2016 Overview (06/27/2016): Per previous PCP, Dr Payne. Hypercholesteremia 06/27/2016 Overview (06/27/2016): Per previous PCP, Dr Payne. On pravastatin 40 mg Rheumatoid arthritis with po sitive rheumatoid factor (HCC-CMS) 06/27/2016 Overview (08/14/2022): Per previous PCP, Dr Payne. On prednisone. Installation Helper: Dr Andre. 03/11/16 Seen by Jose Santos PA-C at , Taking Meloxicam, [place] taken methotrexate x 1 year while in [place]. Started on Plaquenil 200 mg BID 09/08/16 F/u with Jose Santos PA-C at [facility] Rheumatology. Continue same POC. Give Prednisone 40 mg x 10 days. Stop nabumetone, start meloxicam. F/u 3 months 12/09/16 F/u AGAPITO Santos for RA. Check labs. Continue methotrexate 2.5 mg 6 tabs PO once weekly. REc'd PCV13 07/31/17 F/u AGAPITO Andrews. Continue nabumentone, start gabapentin 100 mg 2 tabs BID F/u 3 months 11/02/17 F/u Jose Giron.. Taking Plaquenil and gabapentin. Start Enbrel. 08/04/18 F/u [facility] Rheum. ADvised continue Plaquenil, MTX, FA. Start Humira. REc'd PCV13 at time of visit. 01/31/19 Eval at [facility], Dr Aguirre. Continue Plaquenil. Get regular eye exams. Continues same pain medications. 02/28/19 Eval at [facility]< Dr Aguirre. Advised to retry methotrexate 12.5 mg weekly. Cont folic acid Continue hydroxychloroquine and diclofenac. F/u 1 month 09/28/20 Eval [facility] Rheumatology. Repeat labs, given prednisone taper. RTC in 1 week to initiate a biologic. 10/27 F/u [facility] Rheumatology. Recommend start Humira 40 mg q-2 weeks, call for teaching appt when he receives medication. F/u 3 months. 02/14/21 F/u [facility] Rheum. Pt did not receive more than 2 doses of Humira. Refilled. Given course of prednisone. Referred to ortho for effusion in his knee. F/u 3 months. 06/13/21 F/u [facility] Rheum. Pt only rec'd 2 doses Humira. Advised to restart, F/u 3 months. 10/08/21 F/u [facility] Rheum; pt treated for RA flare on 09/20 with prednisone 5 mg BID; now change to MTX and Enbrel as not well controlled Immunizations Name Administration Dates Next Due Flu, Cell Culture based, Pre servative Free, 6m+, Flucelvax 12/30/2019 Flu, Preservative Free 12/13/2020,02/02/2018 Moderna COVID-19 Vaccine, re d cap blue label, 12+ Primary Series 07/30/2020,06/26/2020 PNEUMOCOCCAL CONJUGATE PCV 13 08/04/2018, 017 PNEUMOCOCCAL POLYSACCHARIDE PPV23 01/11/2019 TDAP 08/19/2018 Family History Medical History Relation Name Comments Colon Cancer Neg Social History Tobacco Use Types Packs/Day Years Used Date Smoking Tobacco: Every Day Cigarettes 0.3 26 Smokeless Tobacco: Never Tobacco Cessation:Ready to Q uit: Not Asked; Counseling Given: Not Answered Comments:Started age 20 Alcohol Use Standard Drinks/Week Comments No 0 (1 standard drink = 0.6 oz pur e alcohol) Social Connections Answer Date Recorded Connectedness 0 11/19/2023 Financial Resource Strain Answer Date R ecorded Financial Resource Strain 0 2018 Stress Answer Date Recorded Stress 0 10/26/2018 Physical Activity Answer Date Recorded Physical Activity 0 10/26/2018 Food Insecurity Answer Date Recorded Food 0 12/03/2023 Transportation Needs Answer Date Record ed Transportation 0 10/26/2018 Housing Stability Answer Date Recorded Housing 0 10/26/2018 Safety and Environment Answer Date Wojciech rded Safety 0 10/26/2018 Utilities Answer Date Recorded Utilities 0 10/26/2018 Employment Answer Date Recorded Stress 0 11/19/2023 Sex and Gender Information Value Date Recorded Sex Assigned at Male 02/23/2017 6:39 AM PST Legal Sex Male 12:24 PM PDT Gender Identity Male 02/23/2017 6:39 AM PST Sexual Orientation Straight 02/23/2017 6: 39 AM PST Last Filed Vital Signs Vital Sign Reading Time Taken Comments Blood Pressure 124/88 08/28/2023 3:16 PM EDT Pulse 90 08/28/2023 3:16 PM EDT Temperature 36.9 ??C (98.5 ??F) 08/28/2023 3:16 PM ED T Respiratory Rate 16 08/28/2023 3:16 PM EDT Oxygen Saturation 98% 08/28/2023 3:16 PM EDT Inhaled Oxygen Concentration - - Weight 92.5 kg (204 lb) 08/28/2023 3:16 PM EDT Height 167.6 cm (5' 6 ) 08/28/2023 3:16 PM EDT Body Mass Index 32.93 08/28/2023 3:16 PM EDT Plan of Treatment Health Maintenance Due Date Last Done Comments Imm-Zoster, Recombinant (1 of 2) 10/04/1994 Sws-[id number] (3 - Moderna ri sk series) 08/27/2020 07/30/2020, 06/26/2020 CT Colonography 10/04/2020 Colonoscopy 10/04/2020 Flexible Sigmoidoscopy 10/04/2020 Tobacco Cessation Counseling (#1) 08/14/2023 08/14/2022, 08/21/2020, 06/21/2020, Additional history exists Imm-Influenza (#1) 2023 12/13/2020, 1 , 02/02/2018, Additional history exists Imm-Pneumococcal (3 of 3 - PPSV23, PCV20 or PCV21) 01/12/2024 01/11/2019, 08/04/2018, 12/09/2016 Alcohol and Drug Screen 03/09/2024 08/28/19, 08/14/2022, 06/21/2020, Additional history exists Depression Annual Screen 03/09/2024 08/28/2023, 0609/2016 Annual Preventive Care Visit 08/27/2024 08/28/2023, 08/19/2018 Diabetes Screening 08/27/2024 08/28/2023, 0 08/28/2023, 02/03/2023, Additional history exists Lipid Screening 08/27/2024 08/28/2023, 01/08, 06/21/2020, Additional history exists Urine Drug Screen 08/27/2024 08/28/2023, , 12/13/2020 FIT/gFOBT 09/29/2024 09/30/2023 Colorectal Cancer Screening 09/29/2026 Fecal DNA 09/29/2026 09/30/2023 Imm-DTaP/Tdap/Td (2 - Td or Tdap) 08/19/2028 019 HIV Screening Completed 08/19/2018 Hepatitis C Screening Completed 10/07/2018 Imm-Hepatitis B Discontinued Goals Goal Patient Goal Type Associated Problems Recent Progress Patient-Stated? Author Blood Pressure < 140/90 Blood Pressure Essential hypertension 124/88(2023 3:16 PM EDT) No Robles Eubanks, PharmD Procedures Procedure Name Priority Date/Time Associated Diagnosis Comments COLOGUARD Routine 09/30/2023 3:00 AM EDT Colon cancer screening DRUG MONITORING, PANEL 8 WITH CONFIRMATION, URINE Routine 08/28/2023 3:58 PM EDT Routine general medical examination at a health care facility Essential hypertension HGBA1C W/MPG Routine 08/28/2023 3:57 PM EDT Routine general medical examination at a health care facility Essential hypertension LIPID PANEL Routine 08/28/2023 3:57 PM EDT Routine general medical examination at a health care facility Essential hypertension HEPATITIS A,B,C PANEL Routine 10/07/2018 10:27 AM EDT Elevated LFTs ANTIBODY HIV-1&HIV-2 SINGLE RESULT Routine 08/19/2018 11:52 AM EDT Screening for HIV (human immunodeficiency virus) from Last 3 Months or Most Recently Relevant to Health Maintenance Results * COLOGUARD (09/30/2023 3:00 AM EDT) Stool Stool specimen / Unknown 09/30/2023 3:00 AM EDT July Alonzo [facility] - NO BLOOD DRAW Edited Res ult - Final [facility] [address] [facility], [address] CLIA [id number] [place] [id number], * DRUG MONITORING, PANEL 8 WITH CONFIRMATION, URINE (08/28/2023 3:58 PM EDT) ALCOHOL METABOLITES NEGATIVE <500 [facility] AMPHETAMINES NEGATIVE <500 [employer] BENZODIAZEPINES NEGATIVE <100 QUES T [employer] [facility] BUPRENORPHINE NEGATIVE <5 [email or web address] [facility] COCAINE METABOLITE NEGATIVE <150 Q [facility]ST [facility] 6 ACETYLMORPHINE NEGATIVE <[address] [employer] [facility] MARIJUANA METABOLITE NEGATIVE <20 [facility] [employer] [facility] MDMA NEGATIVE <500 [facility] OPIATES NEGATIVE <100 [facility] OXYCODONE NEGATIVE <100 [employer] CREATININE 60.1 > or = 20.0 mg/dL [facility] PH 7.0 4.5 - 9.0 [employer] OXIDANT NEGATIVE <200 [employer] Urine Urine specimen / Unknown 08/28/2023 3:58 PM EDT 08/28/2023 3:59 PM EDT July Alonzo [facility] - NO BLOOD DRAW Final Resu lt [facility] [address] [address], [facility] [address] [address] * (ABNORMAL) HGBA1C W/MPG (08/28/2023 3:57 PM EDT) Pathologist [facility] HEMOGLOBIN A1C 5.9(H) <5.7 % of total Hgb [email or web address] [facility] Comment: For someone without known diabetes, a hemoglobin A1c value between 5.7% and 6.4% is consistent with prediabetes and should be confirmed with a follow-up test. For someone with known diabetes, a value <7% indicates that their diabetes is well controlled. A1c targets should be individualized based on duration of diabetes, age, comorbid conditions, and other considerations. This assay result is consistent with an increased risk of diabetes. Currently, no consensus exists regarding use of hemoglobin A1c for diagnosis of diabetes for children. MEAN PLASMA GLUCOSE 133 mg/dL (calc) [employer] Blood Blood / Unknown 08/28/2023 3 :57 PM EDT 08/28/2023 3:57 PM EDT July Ceciliogale [facility] - BLOOD DRAW Edited Result - Final [email or web address] [facility] [address] [address], [email or web address] [address] [address] * (ABNORMAL) LIPID PANEL (08/28/2023 3:57 PM EDT) [facility] CHOLESTEROL, TOTAL 177 <200 mg/dL [email or web address] [facility] HDL CHOLESTEROL 45 > OR = 40 mg/dL [email or web address] [facility] TRIGLYCERIDES 109 <150 mg/dL [email or web address] [facility] LDL-CHOLESTEROL 110(H) 99 mg/dL (calc) [email or web address] [facility] Comment: Reference range: <100 Desirable range <100 mg/dL for primary prevention; ?? <70 mg/dL for patients with CHD or diabetic patients with > or = 2 CHD risk factors. LDL-C is now calculated using the Hung calculation, which is a validated novel method providing better accuracy than the Friedewald equation in the estimation of LDL-C. Antonio SOLORZANO et al. AINSLEY. 2013;310(19): 2133-0320 (http://education.[employer]/faq/VCX996) CHOL/HDLC RATIO 3.9 <5.0 (calc) [email or web address] [facility] NON-HDL CHOLESTEROL 132(H) <130 mg/dL (calc) [email or web address] [facility] Comment: For patients with diabetes plus 1 major ASCVD risk factor, treating to a non-HDL-C goal of <100 mg/dL (LDL-C of <70 mg/dL) is considered a therapeutic option. Blood Blood / Unknown 08/28/2023 3 :57 PM EDT 08/28/2023 3:57 PM EDT July Alonzo [facility] - BLOOD DRAW Final Result Performing Organization Address City/[facility]/ZIP Co de Phone Number [email or web address] [facility] [address] [address], [email or web address] [address] [address] * (ABNORMAL) HEPATITIS A,B,C PANEL (10/07/2018 10:27 AM EDT) HEPATITIS B SURFACE ANTIBODY POSITIVE(A) NEGATIVE [facility] HEPATITIS B SURFACE ANTIGEN NEGATIVE NEGATIVE [facility] Comment: Over the counter supplements containing high doses of biotin may interfere with this assay. ??If interference is suspected, patients shoud be retested after refraining from biotin supplements for 72 hours. HEPATITIS C VIRUS DIAGNOSTIC NEGATIVE NEGATIVE [facility] HEPATITIS A ANTIBODY TOTAL POSITIVE(A) NEGATIVE [facility] Comment: Over the counter supplements containing high doses of biotin may interfere with this assay. ??If interference is suspected, patients shoud be retested after refraining from biotin supplements for 72 hours. HEPATITIS B CORE ANTIBODY NEGATIVE NEGATIVE [facility] Blood specimen (specimen) Blood / Unknown 10/07/2018 10:27 AM EDT 10/07/2018 1:31 PM EDT [facility] - 10/07/2018 4:33 PM EDT [facility] [employer], [place] [address] Fraternity Adviser - Apple Garzon MD PT ID [id number] ORD# [id number] [facility] - BLOOD DRAW [place] [address], * HIV-1 & HIV-2 ANTIBODIES (08/19/2018 11:52 AM EDT) HIV 1 AND 2 ANTIBODY SCREEN NEGATIVE NEGATIVE [facility] Comment: This assay is a 4th generation assay allowing for earlier detection of HIV infection by detecting the presence of the HIV-1 p24 antigen as well as the traditional antibodies to HIV type 1 (including group O) and type 2. ??Use of a 4th generation assay is the current CDC recommendation for HIV screening. Blood specimen (specimen) Blood / Unknown 08/19/2018 11:52 AM EDT 08/19/2018 1:43 PM EDT Narrative [facility] - 08/19/2018 5:10 PM EDT [employer], a member of [address] [address] Fraternity Adviser - Qiana Robertson MD PT ID [id number] ORD# [id number] Trinh Ng [facility] DES[employer] [facility] - BLOOD DRAW Final Re sult [facility] [address], from Last 3 Months or Most Recently Relevant to Health Maintenance Insurance [id number] Care Teams Retail Field Representative Relationship Specialty Start Date End Date July Alonzo FNP [address] [place] [id number] PCP - General Internal Medicine 08/28/23
--- OUTSIDE RECORDS SUMMARY | 2024-05-18 10:06 | XMS_ITS | Clinical Summary ---
Author Organization [facility] ity Address [address] [place] [address] Care Team Providers Care Gm Video Name Role Phone Unavailable Primary Care Provider Unavailabl e Social History Tobacco Use Types Packs/Day Years Used Date Smoking Tobacco: Never Assessed Sex and Gender Information Value Date Recorded Sex Assigned at Not on file Legal Sex Male 6:15 PM EST Gender Identity Not on file Sexual Orientation Not on file Plan of Treatment Health Maintenance Due Date Last Done Comments DTaP,Tdap,and Td Vaccines (1 - Tdap) 10/04/1994 Hepatitis B Vaccines (1 of 3 - 19+ 3-dose series) 10/04/1994 Cholesterol Screening (Lipid Panel) 02/08/2022 Colorectal Cancer Screening: Colonoscopy 02/08/2022 Depression Screening 02/08/2022 HIV Screening 02/08/2022 Hepatitis C Screening 02/08/2022 Social Influencers of Health Screening 02/08/2022 COVID-19 Vaccine (2023-2 5 season) 2023 Influenza Vaccine (#1) 2023 HIB Vaccines Aged Out No longer eligi ble based on patient's age to complete this topic HPV Vaccines Aged Out No longer eligi ble based on patient's age to complete this topic Hepatitis A Vaccines Aged Out No long er eligible based on patient's age to complete this topic IPV Vaccines Aged Out No longer eligi ble based on patient's age to complete this topic MMR Vaccines Aged Out No longer eligi ble based on patient's age to complete this topic Meningococcal ACWY Vaccine Aged Out N o longer eligible based on patient's age to complete this topic Meningococcal B Vacine Aged Out No lo nger eligible based on patient's age to complete this topic Pneumococcal Vaccine: Pediat rics (0 to 5 Years) and At-Risk Patients (6 to 64 Years) Aged Out No longer eligible b ased on patient's age to complete this topic RSV Immunization Patients Un julián 20 months Aged Out No longer eligible b ased on patient's age to complete this topic Varicella Vaccines Aged Out No longer eligible based on patient's age to complete this topic
[2024-05-18 10:25] LABS: Basophils Percent Auto 0.5 % (0-2); Eosinophils Absolute Auto 0.3 X10*3/uL (0.0-0.4); Eosinophils Percent Auto 4.4 % (0-4); Hematocrit 45.4 % (42.0-52.0); Hemoglobin 15.8 g/dl (14.0-18.0); Imm Gran Abs Auto 0.02 X10*3/uL (0.00-0.03); Imm Gran Pct Auto 0.3 % (0.0-0.4); Mean Corpuscular HGB Conc 34.8 g/dl (31.0-36.0); Mean Corpuscular Hemoglobin 31.7 pg (27.0-33.0); Mean Corpuscular Volume 91.2 fL (80.0-98.0); Mean Platelet Volume 10.6 fL (9.4-12.4); Monocytes Absolute Auto 0.7 X10*3/uL (0.1-1.2); Monocytes Percent Auto 11.1 % (2-11); Neutrophils Percent Auto 49.7 % (45-73); Platelet Count 193 X10*3/uL (160-400); Red Blood Count 4.98 X10*6/uL (4.60-5.80); Red Cell Distribution Width 11.8 % (11.0-16.0)
[2024-05-18 11:08] LABS: Erythrocyte Sedimentation Rate 17 MM/HR (0-15)
[2024-05-18 11:30] LABS: Alanine Aminotransferase 109 U/L (0-40); Alkaline Phosphatase 102 U/L (39-117); Anion Gap 10 (12-20); Aspartate Amino Transferase 65 U/L (5-37); Bilirubin Total 0.7 mg/dL (0.0-1.0); Blood Urea Nitrogen 6 mg/dL (9-16); C Reactive Protein 2.37 mg/dL (< or = 0.50); Calcium 9.3 mg/dL (8.4-10.2); Carbon Dioxide 25 mmol/L (22-29); Chloride 107 mmol/L (96-108); Estimated Glomerular Filt Rate > 60; Glucose Random 123 mg/dL (60-115); Potassium 3.3 mmol/L (3.3-5.1); Sodium 139 mmol/L (135-145); Total Protein 8.1 g/dL (6.5-8.0)
[2024-05-18 11:39] LABS: HBS Num1 514.98 mIU/mL (0-7.99); HBc Num1 0.11 S/CO (0.00-0.79); HBsAGNum1 0.34 S/CO (0.00-0.99); Hepatitis A Antibody IgM 0.25 Index (0-0.79); Hepatitis B Core Antibody Nonreactive (Nonreactive); Hepatitis B Surface Antigen Negative (Negative); ~HepC Num1 0.18 S/CO (0.00-0.79); ~Hepatitis A Antibody IgM Nonreactive (Nonreactive); ~Hepatitis B Surface Antibody REACTIVE (Nonreactive); ~Hepatitis C Antibody Nonreactive (Nonreactive)
[2024-05-20 21:19] LABS: TS Negative Control Passed; TS Panel A 0; TS Panel B 0; TS Positive Control Passed; TSpotTB Negative (Negative)
== END 2024-05-18 09:18 | disposition home or self-care (01) ==
LOC: HO.LAB 09:17
PROVIDERS: PCP Nurse Practitioner; Visit Provider Student in an Organized Health Care Education/Training Program
DX: M06.9 Rheumatoid arthritis, unspecified (principal)
CPT/HCPCS: 36415; 80053; 85025; 85652; 86140; 86481; 86704; 86706; 86709; 86803; 87340

== ENCOUNTER 2024-06-24 09:41 | Outpatient (REF) | payer MEDICAID, SELFPAY ==
--- NOTE | ~2024-06-24 | US_ITS ---
EXAMINATION: US ABDOMEN COMPLETE WITH LIVER ELASTOGRAPHY HISTORY: R74.01 - Elevation of levels of liver transaminase levels TECHNIQUE: Real-time grayscale ultrasound imaging of the abdomen was performed and images were reviewed. COMPARISON: Correlation is made with an unenhanced CT of the abdomen dated 07/12/2020. FINDINGS: Liver: The right lobe of the liver measures 16.3 cm in size. The left lobe of the liver measures 11.6 cm in size. The liver demonstrates increased echotexture, consistent with steatosis. There are scattered tiny hypoechoic foci which likely represent focal fatty sparing. No focal mass or intrahepatic biliary ductal dilatation is identified. There is normal hepatopedal flow in the portal vein. Ultrasound elastography of the liver was performed with 10 separate measurements of the liver parenchyma with the patient in the supine position. Measurements were obtained approximately 2 cm below Dionne's capsule and perpendicular to the capsule. Images are of satisfactory quality. The median shear wave velocity is 1.71 m/s. The interquartile range/median (IQR/median) is 0.06. Gallbladder and biliary tree: The gallbladder is surgically absent. The common bile duct is normal in caliber measuring 6 mm. Kidneys: The right kidney measures 11.2 cm in length. The left kidney measures 11.8 cm in length. There is a 10 mm cyst at the lower pole of the left kidney. The kidneys are otherwise unremarkable, without evidence of solid masses, hydronephrosis, or calculi. Pancreas: The pancreatic head, neck, and body are unremarkable. The pancreatic tail is obscured by bowel gas. Spleen: The spleen is normal in size and contour, measuring 11.0 cm in length. Abdominal aorta and inferior vena cava: The visualized portions of the abdominal aorta and inferior vena cava are normal in caliber. There is no free fluid in the abdomen. US/US abdomen comp w elastography IMPRESSION: Hepatic steatosis. The median shear wave velocity in the liver is 1.71 m/s, corresponding to a median liver stiffness of 9.00 kPa. The IQR/median value is 0.06. This is indicative of a quality data set. Findings are indicative of a high elastography value suggestive of compensated advanced chronic liver disease. REFERENCE: Society of Radiologists in Ultrasound Liver Stiffness Thresholds (2020): LIVER STIFFNESS THRESHOLDS: *Shear wave velocity less than 1.3 m/s (Liver Stiffness equal or less than 5 kPa): High probability of being normal. *Shear wave velocity less than 1.7 m/s (Liver Stiffness less than 9 kPa): In the absence of other known clinical signs, rules out compensated advanced chronic liver disease. *Shear wave velocity between 1.7-2.1 m/s (Liver Stiffness 9-13 kPa): Suggestive of compensated advanced chronic liver disease but need further test for confirmation. *Shear wave velocity between 2.1-2.4 m/s (Liver Stiffness 13-17 kPa): Rules in compensated advanced chronic liver disease. *Shear wave velocity greater than 2.4 m/s (Liver Stiffness over 17 kPa): Suggestive of clinically significant portal hypertension. QUALITY OF DATA SET: *IQR/Median value equal or less than 0.15 implies a quality data set. *IQR/Median value over 0.15 implies a poor quality data set. SIGNIFICANT CHANGE FROM PRIOR EXAM: Significant change if liver stiffness measurement is 10% or greater from prior exam. OTHER CONSIDERATIONS: The stage of liver fibrosis may be overestimated in the setting of acute hepatitis, liver inflammation, elevated liver function tests, hepatic vascular congestion, obstructive cholestasis, non-fasting state, and infiltrative diseases such as amyloidosis and lymphoma. In some patients with NAFLD, the liver stiffness thresholds for compensated advanced chronic liver disease may be lower. In causes other than viral hepatitis and NAFLD, liver stiffness thresholds are not well established. Electronically signed by: Dwayne Granger MD 06/24/2024 11:03 AM EDT
--- OUTSIDE RECORDS SUMMARY | 2024-06-24 10:17 | XMS_ITS | Clinical Summary ---
Author Organization [facility] Address [address] [place] [address] Care Team Providers Care Head Esthetician Name Role Phone July Alonzo [facility] Primary Care Provider [phone] Source Comments PLEASE NOTE, if this patient [...] daily as needed. Lifetime need. 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 (HCC-CMS) APPLY TOPICALLY 2 (TWO) TIMES DAILY NEEDED FOR PAIN 100 g 2 3 Active naloxone (NARCAN) 4 mg/actuation nasal sprayIndications :Rheumatoid arthritis with positive rheumatoid factor, involving unspecified site (HCC-CMS) Place 1 Whitman into the nostril(s) as needed (Overdose) 1 Each 4 Active diclofenac sodium (VOLTAREN) [address] tabletIndication s:Rheumatoid arthritis with positive rheumatoid factor, involving unspecified site (HCC-CMS) Take 1 Tablet by mouth 2 (two) times daily as needed for other reason (pain) 60 Tablet 3 4 Active pravastatin (PRAVACHOL) 40 mg tabletIndication s:Hypercholester emia TAKE 1 TABLET BY MOUTH EVERY DAY 90 Tablet 5 Active lisinopriL-hydro chlorothiazide 20-25 mg per tabletIndication s:Essential hypertension TAKE 1 TABLET BY MOUTH EVERY DAY 90 Tablet 5 Active traMADoL (ULTRAM) 50 mg tabletIndication s:Rheumatoid arthritis with positive rheumatoid factor, involving unspecified site (HCC-CMS) Take 1 Tablet by mouth 4 (four) times daily as needed for pain 120 Tablet 5 Active traMADoL (ULTRAM) 50 mg tabletIndication s:Rheumatoid arthritis with positive rheumatoid factor, involving unspecified site (HCC-CMS) TAKE 1 TABLET BY MOUTH 4 TIMES DAILY NEEDED FOR PAIN 120 Tablet 5 06/11/19 25 Discontin ued(Reord er (E-Cancel Not Sent)) Active Problems Problem Noted Date Diagnosed Date Chronic, continuous use of opioids 12/13/2020 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 On prednisone. [facility] Aide: Dr Andre. 03/11/16 Seen by Jose Santos PA-C at , Taking Meloxicam, Has taken methotrexate x 1 year while in [place]. Started on Plaquenil 200 mg BID 09/08/16 F/u with Jose Santos PA-C at [facility] Rheumatology. Continue same POC. Give Prednisone [...] Plaquenil and gabapentin. Start Enbrel. 08/04/18 F/u [facility] Rheum. ADvised continue Plaquenil, MTX, FA. Start Humira. REc'd PCV13 at time of visit. 01/31/19 Eval at [facility], Dr Aguirre. Continue Plaquenil. Get regular eye exams. Continues same pain medications. 02/28/19 Eval at [facility]< Dr Aguirre. Advised to retry methotrexate 12.5 mg weekly. Cont folic acid Continue hydroxychloroquine and diclofenac. F[facility], given prednisone taper. RTC in 1 week to initiate a biologic. 10/27 F/u [facility] Rheumatology. Recommend start Humira 40 mg q-2 weeks, call for teaching appt when he receives medication. F/u 3 months. 02/14/21 F/u [facility] Rheum. Pt did not receive more than 2 doses of Humira. Refilled. Given course of prednisone. Referred to ortho for effusion in his knee. F/u 3 months. 06/13/21 F/u [facility] Rheum. Pt only rec'd 2 doses Humira. Advised to restart, F/u 3 months. 10/08/21 F/u [facility] Rheum; pt treated for RA flare on 09/20 with prednisone 5 mg BID; now change to MTX and Enbrel as not well controlled Immunizations Immunization Administration Dates Next Due Flu, Cell Culture [...] 08/28/2023 3:16 PM EDT Plan of Treatment Upcoming Encounters Date Type Department Care Team (Late st Contact Info) Description 07/14/2024 10:20 AM EDT Office Visit [address] [phone] Lisa Weaver FNP [address] [place] [address] 07/29/2024 10:40 AM EDT Office Visit [address] [phone] Lila Mojica PA-C [address] [place] [address] Health Maintenance Due Date Last Done Comments Anxiety Screening 1975 Imm-Zoster, Recombinant (1 of 2) 10/04/1994 [id number] (3 - Moderna ri sk series) 08/27/2020 [...] history exists Depression Annual Screen 03/09/2024 08/28/2023, 09/2016 Annual Preventive Care Visit 08/27/2024 08/28/2023, 08/19/2018 [...] Procedure Name Priority Date/Time Associated Diagnosis Comments LAB SCANNED DOCUMENT 05/18/2024 3:00 AM EDT LAB REFERRAL Routine 05/18/2024 3:00 AM EDT Colon cancer screening COLOGUARD Routine 09/30/2023 3:00 AM EDT Colon [...] Recently Relevant to Health Maintenance Results * LAB REFERRAL (05/18/2024 3:00 AM EDT) 05/18/2024 3:00 AM EDT July Cheri [facility] REFERRAL Final Result * LAB SCANNED DOCUMENT (05/18/2024 3:00 AM EDT) 05/18/2024 3:00 AM EDT Trinh Fonsecainda [facility] SCAN LAB Final Res ult * COLOGUARD (09/30/2023 3:00 AM EDT) Stool Stool specimen / Unknown 09/30/2023 3:00 AM EDT July Gugale [facility] LAB - NO BLOOD DRAW Edited Res ult - Final [employer] [address] [place] [address], [address] [facility] [id number] [place] [address], * DRUG MONITORING, PANEL 8 WITH CONFIRMATION, URINE (08/28/2023 3:58 PM EDT) ALCOHOL METABOLITES NEGATIVE <500 [employer] [facility] AMPHETAMINES NEGATIVE <500 [employer] [facility] BENZODIAZEPINES NEGATIVE <100 QUES T [employer] [facility] BUPRENORPHINE NEGATIVE <5 QUEST [employer] [facility] COCAINE METABOLITE NEGATIVE <150 Q [facility] [employer] [facility] 6 ACETYLMORPHINE NEGATIVE <[address] [facility] [employer] [facility] MARIJUANA METABOLITE NEGATIVE <20 [employer] MDMA NEGATIVE <500 [employer] [facility] OPIATES NEGATIVE <100 [facility] OXYCODONE NEGATIVE <100 [facility] CREATININE 60.1 > or = 20.0 mg/dL [employer] [facility] PH 7.0 4.5 - 9.0 [facility] OXIDANT NEGATIVE <200 [facility] Urine Urine specimen / Unknown 08/28/2023 3:58 PM EDT 08/28/2023 3:59 PM EDT July Alonzo [facility] LAB - NO BLOOD DRAW Final Resu lt Performing Organization Address [facility] de Phone Number [employer] [facility] [address] [address], [employer] [address] [phone] * (ABNORMAL) HGBA1C W/MPG (08/28/2023 3:57 PM EDT) HEMOGLOBIN A1C 5.9(H) <5.7 % of total Hgb [facility] Comment: For someone without known diabetes, a [...] children. MEAN PLASMA GLUCOSE 133 mg/dL (calc) [facility] Blood Blood / Unknown 08/28/2023 3 :57 PM EDT 08/28/2023 3:57 PM EDT July Hernandesgale [facility] LAB - BLOOD DRAW Edited Result - Final Performing Organization Address [facility] Co de Phone Number [employer] [facility] [address] [address], [employer] [address] [phone] * (ABNORMAL) LIPID PANEL (08/28/2023 3:57 PM EDT) CHOLESTEROL, TOTAL 177 <200 mg/dL [employer] [facility] HDL CHOLESTEROL 45 > OR = 40 mg/dL [employer] [facility] TRIGLYCERIDES 109 <150 mg/dL [facility] LDL-CHOLESTEROL 110(H) 99 mg/dL (calc) [facility] Comment: Reference range: <100 Desirable range <100 mg/dL for primary prevention; ?? <70 mg/dL for patients with CHD or diabetic patients with > or = 2 CHD risk factors. LDL-C is now calculated using the Hung calculation, which is a validated novel method providing better accuracy than the Friedewald equation in the estimation of LDL-C. Antonio SS et al. AINSLEY. 2013;310(19): 4577-7376 (http://education.Onestop Internet/faq/FCA777) CHOL/HDLC RATIO 3.9 <5.0 (calc) [facility] NON-HDL CHOLESTEROL 132(H) <130 mg/dL (calc) [facility] Comment: For patients with diabetes plus 1 major ASCVD risk factor, treating to a non-HDL-C goal of <100 mg/dL (LDL-C of <70 mg/dL) is considered a therapeutic option. Blood Blood / Unknown 08/28/2023 3 :57 PM EDT 08/28/2023 3:57 PM EDT July Cheri [facility] LAB - BLOOD DRAW Final Result [employer] [address] [place] [address], [facility] [address] [place] [phone] * (ABNORMAL) HEPATITIS A,B,C PANEL (10/07/2018 10:27 AM EDT) HEPATITIS B SURFACE ANTIBODY POSITIVE(A) NEGATIVE [facility] HEPATITIS B SURFACE ANTIGEN NEGATIVE NEGATIVE [facility] Comment: Over the counter supplements containing high doses of biotin may interfere with this assay. ??If interference is suspected, patients shoud be retested after refraining from biotin supplements for 72 hours. HEPATITIS C VIRUS DIAGNOSTIC NEGATIVE NEGATIVE [facility] HEPATITIS A ANTIBODY TOTAL POSITIVE(A) NEGATIVE [facility] Comment: Over the counter supplements containing high doses of biotin may interfere with this assay. ??If interference is suspected, patients shoud be retested after refraining from biotin supplements for 72 hours. HEPATITIS B CORE ANTIBODY NEGATIVE NEGATIVE [facility] Blood specimen (specimen) Blood / Unknown 10/07/2018 10:27 AM EDT 10/07/2018 1:31 PM EDT [facility] - 10/07/2018 4:33 PM EDT [employer], [place] [address] Spinner Tender - Apple Garzon MD PT ID [id number] ORD# [id number] [facility] - BLOOD DRAW Edited R esult - Final Performing Organization Address City/[facility]/[place] [address], [place] [phone] * HIV-1 & HIV-2 ANTIBODIES (08/19/2018 11:52 AM EDT) [facility] HIV 1 AND 2 ANTIBODY SCREEN NEGATIVE NEGATIVE [facility] Comment: This assay is a 4th generation [...] 11:52 AM EDT 08/19/2018 1:43 PM EDT [facility] - 08/19/2018 5:10 PM EDT [employer], [place] [address] Spinner Tender - Qiana Robertson MD PT ID [id number] ORD# [id number] [facility] - BLOOD DRAW Final Re sult [address] [address], [place] [phone] from Last 3 Months or Most Recently Relevant to Health Maintenance Insurance [id number] Care Teams Head Esthetician Relationship Specialty Start Date End Date July Alonzo FNP [facility] [place] [address] PCP - General Internal Medicine 08/28/23
--- OUTSIDE RECORDS SUMMARY | 2024-06-24 10:17 | XMS_ITS | Clinical Summary ---
Author Organization [facility] ity Address [address] [place] [address] Care Team Providers Care Electronic Pagination System Operator Name Role Phone Unavailable Primary Care Provider [...] Vaccine (2023-2 5 season) 2023 Influenza Vaccine (Season Ended) 2024 HIB Vaccines Aged Out No longer eligi [...] age to complete this topic Meningococcal B Vaccine Aged Out No l onger eligible based on patient's age to complete [...]
== END 2024-06-24 09:42 | disposition home or self-care (01) ==
LOC: HO.US 09:41
PROVIDERS: PCP Nurse Practitioner; Visit Provider Student in an Organized Health Care Education/Training Program
DX: R74.01 Elevation of levels of liver transaminase levels (principal)
CPT/HCPCS: 76700; 76981

== ENCOUNTER → 2024-06-24 09:43 | Outpatient (BNV) | payer MEDICAID, SELFPAY | PROVIDERS: PCP Nurse Practitioner; Visit Provider Radiology Diagnostic Radiology | DX: R74.01 Elevation of levels of liver transaminase levels (principal) | CPT/HCPCS: 76700; 76981 ==

== ENCOUNTER 2025-02-04 10:28 | Outpatient (REF) | payer MEDICAID, SELFPAY ==
[2025-02-04 10:51] LABS: MANUAL DIFF FLAG NO
[2025-02-04 11:34] LABS: Hematocrit 43.3 % (42.0-52.0); Hemoglobin 15.3 g/dl (14.0-18.0); Imm Gran Abs Auto 0.01 X10*3/uL (0.00-0.03); Imm Gran Pct Auto 0.1 % (0.0-0.4); Lymphocytes Absolute Auto 3.0 X10*3/uL (1.2-4.9); Mean Corpuscular HGB Conc 35.3 g/dl (31.0-36.0); Mean Corpuscular Hemoglobin 32.1 pg (27.0-33.0); Mean Corpuscular Volume 90.8 fL (80.0-98.0); NRBC Abs Auto 0.000 X10*3/uL (0.0-0.012); NRBC Pct Auto 0.0 /100WBC (0.0-0.2); Platelet Count 190 X10*3/uL (160-400); Red Blood Count 4.77 X10*6/uL (4.60-5.80); White Blood Count 7.1 X10*3/uL (4.8-10.8)
[2025-02-04 12:11] LABS: Alanine Aminotransferase 58 U/L (0-40); Albumin Level 4.5 g/dL (3.5-5.0); Alkaline Phosphatase 94 U/L (39-117); Anion Gap 12 (12-20); Aspartate Amino Transferase 32 U/L (5-37); Blood Urea Nitrogen 7 mg/dL (9-16); Calcium 9.7 mg/dL (8.4-10.2); Carbon Dioxide 28 mmol/L (22-29); Chloride 105 mmol/L (96-108); Estimated Glomerular Filt Rate > 60; Potassium 3.5 mmol/L (3.3-5.1); Sodium 141 mmol/L (135-145); Total Protein 7.9 g/dL (6.5-8.0)
== END 2025-02-04 10:29 | disposition home or self-care (01) ==
LOC: HO.LAB 10:28
PROVIDERS: PCP Dentist General Practice; Visit Provider Student in an Organized Health Care Education/Training Program
DX: Z79.899 Other long term (current) drug therapy (principal)
CPT/HCPCS: 36415; 80053; 85025; 85652; 86140